=== PATIENT | male | born 1965 | race Caucasian/White ===

== ENCOUNTER 2016-10-17 11:40 | Emergency (ER) | payer BC ==
--- NOTE | 2016-10-17 14:05 | RAD ---
Indication: Shortness of breath, fall. 2 views of the chest including dual energy PA views demonstrate no mediastinal shift. Heart is of normal size and configuration. Lung appiah demonstrate no pleural fluid, pneumonia or pneumothorax. No alveolar consolidation is noted. IMPRESSION: No active cardiopulmonary disease is noted.
--- NOTE | 2016-10-27 12:24 | ED ---
Complex/Multi-Sys Presentation - HPI Summary HPI Summary: Patient suffered a fall 10 days ago and injured his left ribs. [facility] fractures and dx with early pneumonia, and started on ABX. Yesterday morning he felt a pop in his rib when he rolled over in bed and since then has had increased pain and a feeling of SOB. He denies any new trauma. No CP, abdominal pain or fevers. His pain increases with deep breaths, coughing and sneezing. He is using the ABX and pain medication with minimal relief. - History Of Current Complaint Chief Complaint: EDChestWallPain Time Seen by Provider: 10/17/16 13:25 Hx Obtained From: Patient, Family/Histopathology Technician Onset/Duration: Gradual Onset - yesterday Timing: Constant Severity Currently: Severe Severity Initially: Severe Location: Pain At: - left posterior mid ribs Character: Sharp - Allergies/Home Medications Allergies/Adverse Reactions: Allergies Allergy/AdvReac Type Severity Reaction Status Date / Time No Known Allergies Allergy Verified 10/17/16 12:38 PMH/Surg Hx/FS Hx/Imm Hx Previously Healthy: Yes Infectious Disease History: No Infectious Disease History: Denies: Traveled Outside the [place] in Last 30 Days - Family History Known Family History: Positive: Hypertension - Social History Occupation: Employed Full-time Lives: With Family Alcohol Use: None Substance Use Type: Reports: None Smoking Status (MU): Never Smoked Tobacco Review of Systems Negative: Fever, Chills Negative: Sore Throat, Ear Ache Negative: Chest Pain Negative: Shortness Of Breath - pain with deep breaths Negative: Abdominal Pain Positive: Myalgia Negative: Weakness, Paresthesia, Numbness All Other Systems Reviewed And Are Negative: Yes Physical Exam Triage Information Reviewed: Yes Vital Signs On Initial Exam: Initial Vitals Temp Pulse Resp BP Pulse Ox 98.4 F 77 16 135/91 100 10/17/16 12:31 10/17/16 12:31 10/17/16 12:31 10/17/16 12:31 10/17/16 12:31 Vital Signs Reviewed: Yes Appearance: Positive: Well-Appearing, Well-Nourished, Pain Distress Skin: Positive: Warm, Skin Color Reflects Adequate Perfusion, Dry, Soft Head/Face: Positive: Normal Head/Face Inspection Eyes: Positive: EOMI, BRAD ENT: Positive: Hearing grossly normal Respiratory/Lung Sounds: Positive: Clear to Auscultation, Breath Sounds Present. Negative: Rales, Rhonchi, Subcutaneous Emphysema, Stridor, Wheezes Cardiovascular: Positive: RRR Abdomen Description: Positive: Nontender, Soft Bowel Sounds: Positive: Present Musculoskeletal: Positive: Strength/ROM Intact, Pain @ - left posterior mid ribs. Negative: Edema Left Neurological: Positive: Sensory/Motor Intact, Alert, Oriented to Person Place, Time, NV Bundle Intact Distally, Normal Gait Psychiatric: Positive: Affect/Mood Appropriate AVPU Assessment: Alert Diagnostics - Vital Signs Vital Signs Temp Pulse Resp BP Pulse Ox 10/17/16 14:56 85 16 129/87 10/17/16 12:31 98.4 F 77 16 135/91 100 - Laboratory Lab Statement: Any lab studies that have been ordered have been reviewed, and results considered in the medical decision making process. - Radiology No standard instances Xray Interpretation: No Acute Changes Radiology Interpretation Completed By: Radiologist Complex Multi-Symp Course/Dx - Diagnoses Differential Diagnoses/HQI/PQRI: Aspiration, CVA, Sepsis Provider Diagnoses: Contusion of rib on left side Discharge - Discharge Plan Condition: Stable Disposition: HOME Patient Education Materials: Rib Contusion (ED) Forms: *Work Release Referrals: No Primary Care Phys,NOPCP [Primary Care Provider] - Additional Instructions: Please use ibuprofen 600mg three times daily with meals for the next 7-10 days. Make sure you take deep breaths several times daily to decrease your risk of pneumonia. Follow-up with your primary care provider if your symptom do not begin to improve in the next 10-14 days. Return to the emergency department if your symptoms worsen.
== END 2016-10-17 14:56 | disposition home or self-care (01) ==
LOC: ED 11:40
DX: S20.212A Contusion of left front wall of thorax, initial encounter (principal); X58.XXXA Exposure to other specified factors, initial encounter; Y93.9 Activity, unspecified; Y92.9 Unspecified place or not applicable
CPT/HCPCS: 71020; 99281

== ENCOUNTER 2019-06-16 13:52 | Inpatient (IN) | payer OTHER ==
[2019-06-16] MEDS ORDERED: NS 0.9% 1000 ML** 1,000 ML IV ONE (14:03)
--- OUTSIDE RECORDS SUMMARY | 2019-06-16 14:06 | XMS REPORT | Summary of Care ---
:1965 Author Organization [facility] Address [address] [place] [address] Care Team Providers Name Role Phone Etienne Alvaradoed Gisella DO Primary Care Provider Reason for Visit Reason Comments Check Up tick bite Encounter Details Date Type Department Care Team Description 05/12/2019 Office Visit Beth Ferrari Rash (Primary Dx); Practice [employer] Insect bite of back, unspecified laterality, initial encounter [address] [place] [address] [place] [address] [phone] Allergies No Known Allergiesdocumented as of this encounter (statuses as of 05/12/2019) Medications Medication Sig Dispensed Refills Start Date End Date Status Multiple Take 1 Tab by 60 Tab 3 02/17/2018 Active Vitamins-Minerals mouth DAILY. (MULTIVITAMIN ADULTS 50+) Oral Tab foliC acid 1 MG Oral Tab Take 1 Tab by 30 Tab 3 02/18/2018 Active mouth DAILY. Omeprazole delayed rel Take 20 mg by 90 Cap 1 05/06/2018 Active cap 20 MG Oral CAPSULE mouth DAILY. DELAYED RELEASE Spironolactone 100 MG Take 1 Tab by 90 Tab 3 09/08/2018 Active Oral Tab mouth DAILY. rifaximin (XIFAXAN) 550 Take 1 Tab by 180 Tab 1 03/18/2019 Active MG Oral TabIndications: mouth TWICE Alcoholic cirrhosis of DAILY. liver with ascites (HCC) furosemide (LASIX) 40 MG Take 1 Tab by 90 Tab 1 03/18/2019 Active Oral TabIndications: mouth DAILY. Alcoholic cirrhosis of liver with ascites (HCC) doxycycline (VIBRAMYCIN) Take 200 mg by 2 Tab 0 05/12/2019 05/13/2019 Active 100 MG Oral mouth ONE TIME TabIndications: Insect for 1 day. bite of back, unspecified laterality, initial encounter documented as of this encounter (statuses as of 05/12/2019) Active Problems Problem Noted Date Alcoholic cirrhosis of liver with ascites 03/24/2018 Cirrhosis documented as of this encounter (statuses as of 05/12/2019) Immunizations Name Administration Dates Next Due PNEUMOCOCCAL POLYSACCHARIDE VACCINE 02/26/2018 TDAP Vaccine 02/26/2018 documented as of this encounter Social History Tobacco Use Types Packs/Day Years Used Date Current Every Day Smoker Cigarettes 0.25 Smokeless Tobacco: Never Used Alcohol Use Drinks/Week oz/Week Comments No sober since 2.5 months Sex Assigned at Date Recorded Not on file Job Start Date Occupation Industry Not on file Not on file Not on file Travel History Travel Start Travel End No recent travel history available. documented as of this encounter Last Filed Vital Signs Vital Sign Reading Time Taken Comments Blood Pressure 120/70 05/12/2019 1:07 PM EDT Pulse 61 05/12/2019 1:07 PM EDT Temperature - - Respiratory Rate - - Oxygen Saturation 98% 05/12/2019 1:07 PM EDT Inhaled Oxygen Concentration - - Weight 78.2 kg (172 lb 6.4 oz) 05/12/2019 1:07 PM EDT Height 177.8 cm (5' 10") 05/12/2019 1:07 PM EDT Body Mass Index 24.74 05/12/2019 1:07 PM EDT documented in this encounter Patient Instructions Patient InstructionsBeth Anthony FNP - 05/12/2019 1:00 PM EDTMedication as directed - eat first Call if any fever, rash or body aches documented in this encounter Progress Notes Beth Anthony FNP - 05/12/2019 1:00 PM EDT PATIENT: Amari Magaña : 1965 DATE OF SERVICE: 05/12/2019 CHIEF COMPLAINT: Chief Complaint Patient presents with Check Up tick bite Subjective HISTORY OF PRESENT ILLNESS: Amari Magaña is a 54-y.o. male. HPI found red area on pt upper back yesterday. Had been doing yard work prior. No tick seen. Past Medical History: Diagnosis Date Cirrhosis (HCC) Family History Problem Relation Age of Onset Heart Father 50 [place] Heart Paternal Grandmother 74 [place] Current Outpatient Medications Medication Sig doxycycline (VIBRAMYCIN) 100 MG Oral Tab Take 200 mg by mouth ONE TIME for 1 day. foliC acid 1 MG Oral Tab Take 1 Tab by mouth DAILY. furosemide (LASIX) 40 MG Oral Tab Take 1 Tab by mouth DAILY. Multiple Vitamins-Minerals (MULTIVITAMIN ADULTS 50+) Oral Tab Take 1 Tab by mouth DAILY. Omeprazole delayed rel cap 20 MG Oral CAPSULE DELAYED RELEASE Take 20 mg by mouth DAILY. rifaximin (XIFAXAN) 550 MG Oral Tab Take 1 Tab by mouth TWICE DAILY. Spironolactone 100 MG Oral Tab Take 1 Tab by mouth DAILY. No current facility-administered medications for this visit. No Known Allergies Social History Socioeconomic History Marital status: Spouse name: Not on file Number of children: Not on file Years of education: Not on file Highest education level: Not on file Occupational History Not on file Social Needs Financial resource strain: Not on file Food insecurity: Worry: Not on file Inability: Not on file Transportation needs: Medical: Not on file Non-medical: Not on file Tobacco Use Smoking status: Current Every Day Smoker Packs/day: 0.25 Types: Cigarettes Smokeless tobacco: Never Used Substance and Sexual Activity Alcohol use: No Comment: sober since 2.5 months Drug use: Yes Types: Marijuana Sexual activity: Yes Partners: Female Lifestyle Physical activity: Days per week: Not on file Minutes per session: Not on file Stress: Not on file Relationships Social connections: Talks on phone: Not on file Gets together: Not on file Attends taoism service: Not on file Active member of club or organization: Not on file Attends meetings of clubs or organizations: Not on file Relationship status: Not on file Intimate partner violence: Fear of current or ex partner: Not on file Emotionally abused: Not on file Physically abused: Not on file Forced sexual activity: Not on file Other Topics Concern Back Care Not Asked Bike Helmet Not Asked Blood Transfusions Not Asked Caffeine Concern Not Asked Exercise Not Asked Hobby Hazards Not Asked International Travel Not Asked Service Not Asked Occupational Exposure Not Asked Seat Belt Not Asked Self-Exams Not Asked Sleep Concern Not Asked Special Diet Not Asked Stress Concern Not Asked Weight Concern Not Asked Social History Narrative 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 Musculoskeletal: Negative for joint pain and myalgias. Skin: Positive for rash. Negative for itching. Neurological: Negative for tingling. Objective PHYSICAL EXAM: VITALS: BP 120/70 (BP Location: Left arm, Patient Position: Sitting) | Pulse 61 | Ht 5' 10" (1.778 m) | Wt 172 lb 6.4 oz (78.2 kg) | SpO2 98% | BMI 24.74 kg/m Body mass index is 24.74 kg/m. Physical Exam Constitutional: He is oriented to person, place, and time. Vital signs are normal. He appears well-developed and well-nourished. HENT: Head: Normocephalic and atraumatic. Eyes: Pupils are equal, round, and reactive to light. Neck: Normal range of motion. No JVD present. Musculoskeletal: Normal range of motion. He exhibits no tenderness. Lymphadenopathy: He has no cervical adenopathy. Neurological: He is alert and oriented to person, place, and time. No cranial nerve deficit or sensory deficit. Gait normal. Skin: Skin is warm and dry. Rash noted. Rash is not pustular and not vesicular. There is erythema. Vitals reviewed. ASSESSMENT / IMPRESSION: ICD-9-CM ICD-10-CM 1. Rash 782.1 R21 2. Insect bite of back, unspecified laterality, initial encounter 911.4 S20.469A doxycycline (VIBRAMYCIN) 100 MG Oral Tab E906.4 right side Plan Will treat with tick prophylaxis Medication as directed - eat first Call if any fever, rash or body aches Author: PHILIP Pederson 05/12/2019 13:31 documented in this encounter Plan of Treatment Health Maintenance Due Date Last Done Comments HIV SCREENING 1981 COLONOSCOPY SCREENING 2016 ZOSTER IMMUNIZATION SERIES (1 2016 of 2) INFLUENZA VACCINE (#1) 2019 EGD (ESOPHAGODUODENOSCOPY) 05/06/2020 05/06/2018, 05/06/2018 DEPRESSION SCREENING 05/12/2020 05/12/2019 LIPID DISORDER SCREENING 03/02/2024 03/02/2019 PNEUMOCOCCAL 0-64 YRS Completed 02/26/2018 HPV IMMUNIZATION SERIES Aged Out No longer eligible based on patient's age to complete this topic MENINGOCOCCAL VACCINE IMM Aged Out No longer eligible based on patient's age to complete this topic documented as of this encounter Results Not on filedocumented in this encounter Visit Diagnoses Diagnosis Rash - Primary Rash and other nonspecific skin eruption Insect bite of back, unspecified laterality, initial encounter documented in this encounter documented as of this encounter
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
[2019-06-16 14:28] LABS: ABS Basophils 0.1 10^3/ul (0-0.2); ABS Lymphocytes 0.9 10^3/ul (1.0-4.8); ABS Monocytes 0.4 10^3/ul (0-0.8); ABS Neutrophils 4.2 10^3/ul (1.5-7.7); Eosinophil % 0.1 %; Hematocrit 43 % (42-52); Hemoglobin 14.5 g/dL (14.0-18.0); Lymphocyte % 16.9 %; Mean Corpuscular HGB Conc 33 g/dL (31-36); Mean Corpuscular Hemoglobin 30 pg (27-31); Mean Corpuscular Volume 89 fL (80-94); Mean Platelet Volume 8.1 fL (7.4-10.4); Nucleated Red Blood Cells % 0.1; Platelet Count 190 10^3/uL (150-450); Red Blood Count 4.87 10^6 /uL (4.18-5.48); Red Cell Distribution Width 14 % (10-15); White Blood Count 5.5 10^3/uL (3.5-10.8)
[2019-06-16 14:34] LABS: INR 1.29 (0.82-1.09)
[2019-06-16 14:53] LABS: Alcohol < 10 mg/dL (<10)
[2019-06-16 14:54] LABS: ALT 9 U/L (7-52); AST 19 U/L (13-39); Albumin 3.8 g/dL (3.2-5.2); Alkaline Phosphatase 57 U/L (34-104); Anion Gap 9 mmol/L (2-11); BUN/Creatinine Ratio 12.7 (8-20); Blood Urea Nitrogen 10 mg/dL (6-24); CO2 Carbon Dioxide 25 mmol/L (22-32); Calcium 9.3 mg/dL (8.6-10.3); Chloride 102 mmol/L (101-111); EGFR African American 124.1 (>60); EGFR Non-African American 102.6 (>60); Globulin 3.8 g/dL (2-4); Glucose 116 mg/dL (70-100); Magnesium 1.9 mg/dL (1.9-2.7); Potassium 3.7 mmol/L (3.5-5.0); Sodium 136 mmol/L (135-145); Total Protein 7.6 g/dL (6.4-8.9)
[2019-06-16 15:24] LABS: Troponin I 0.04 ng/mL (<0.04)
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
[2019-06-16] MEDS ORDERED: Lidocaine 1% INJ* 10 MG/ML 30 ML SDV ONE (16:34)
[2019-06-16] MEDS ORDERED: Heparin 2 UNITS/ML IVPREMIX* 1,000 ML IV ONE (16:34)
[2019-06-16] MEDS ORDERED: fentaNYL* 50 MCG/ML 2 ML VIAL (100 MCG VIAL) ONE (16:39)
[2019-06-16] MEDS ORDERED: Midazolam* 1 MG/ML 5 ML VIAL (5 MG) ONE (16:39)
--- NOTE | 2019-06-16 17:58 | OP ---
Operative Report - Detailed - Operation Details Date of Operation: 06/16/19 Surgeon(s): Mercedes Pre-Op Diagnosis: 3rd degree heart block. Post-Op Diagnosis: 3rd degree heart block Planned Operative Procedure(s): temporary pacer implant Estimated Blood Loss: <1CC IV Fluids: NS 50 cc Specimen(s)/Culture(s) Description: none Description of Procedure: Temporary pacer implant RIGHT subclavina vein. Lower rate 70 bpm. MA 5, pacing threshold 0.5. Async sensing.
--- NOTE | 2019-06-16 18:10 | ECHO ---
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 Syncope. History: Previously healthy. Conclusions Summary: - Left ventricle: Systolic function is vigorous. The estimated ejection fraction is 60-65%. - Right ventricle: Systolic function is normal. - All valves appear structurally normal with normal function. Trace mitral regurgitation. - No prior echocardiogram to compare. Study data: Transthoracic echocardiogram. Procedure: Transthoracic echocardiography was performed. Image quality was suboptimal. Intravenous Definity , 2 mlswas administered. Complete 2D, spectral Doppler, and color flow Doppler. Location: Emergency department. Patient status: Inpatient. Patient room number: 15. Rhythm: Heart block (? 3rd degree). Findings Left ventricle: The cavity size is normal. Wall thickness is normal. Systolic function is vigorous. The estimated ejection fraction is 60-65%. Wall motion is normal; there are no regional wall motion abnormalities. Left ventricular diastolic function parameters are normal. Right ventricle: The cavity size is normal. Systolic function is normal. Left atrium: The atrium is normal in size. Right atrium: The atrium is normal in size. Mitral valve: The leaflets are mildly thickened. There is no evidence of stenosis. There is trace regurgitation. Aortic valve: The valve is probably trileaflet. The leaflets are normal thickness. There is no evidence of stenosis. There is no significant regurgitation. Tricuspid valve: The leaflets are normal thickness. There is no evidence of stenosis. There is no significant regurgitation. Pulmonic valve: Not well visualized. There is no significant regurgitation. Aorta: The aortic root appears normal. The aortic arch appears normal. Pericardium: There is no significant pericardial effusion. Pulmonary arteries: Not well visualized. Systolic pressure can not be accurately estimated. Systemic veins: Inferior vena cava: The vessel is dilated. There is (>= 50%) respiratory change in the IVC dimension. Measurements Left ventricle Value Ref Right atrium continued Value Ref GERMAINE, LAX 5.4 cm 4.2 - 5.8 ML dim, ES, A4C 3.9 cm 2.6 - 4.4 ESD, LAX 2.8 cm 2.5 - 4.0 Estimated RAP 8 mm Hg --------- FS, LAX (H) 49 % 25 - 43 PW, ED, LAX 0.9 cm 0.6 - 1.0 Aortic valve Value Ref ESD/bsa 1.4 cm/m^2 1.3 - 2.1 Ronen diam, ED 2.1 cm --------- EF (H) 80 % 52 - 72 Peak v, S 1.6 m/sec --------- E', lat ronen, TDI 23.6 cm/sec >=10.0 VTI, S 31.9 cm ----- ---- E/e', lat ronen, 3 Mean grad, S 5.0 mm Hg -------- - TDI Peak grad, S 10.0 mm Hg --------- E', med ronen, TDI 20.7 cm/sec >=7.0 E/e', med ronen, 4 Mitral valve Value Ref TDI Peak E 0.8 m/sec --------- E', avg, TDI 22.2 cm/sec Peak A 0.4 m/sec -------- - E/e', avg, TDI 4 <=14 Decel time 119 ms ----- ---- Peak grad, D 2.5 mm Hg --------- LVOT Value Ref Peak E/A ratio 2 --------- Peak won, S 1.22 m/sec Peak grad, S 6 mm Hg Pulmonic valve Value Ref Mean grad, S 3 mm Hg Peak v, S 0.95 m/sec --------- Peak grad, S 4.0 mm Hg --------- Ventricular septum Value Ref IVS, ED 0.8 cm 0.6 - 1.0 Aortic root Value Ref Root diam 3.7 cm <4.1 Right ventricle Value Ref GERMAINE, LAX 2.6 cm Aortic arch Value Ref GERMAINE minor ax, 2.5 cm 1.9 - 3.5 Arch diam 2.2 cm --------- A4C mid Decending aorta Value Ref Left atrium Value Ref Crissy peak won 0.99 m/sec --------- AP dim, ES 3.60 cm 3.00 - 4.00 Inferior vena cava Value Ref ML dim, A4C 4.4 cm Diam 2.7 cm --------- SI dim, A4C 5.4 cm Vol/bsa, ES, A/L 30 ml/m^2 16 - 34 Right atrium Value Ref SI dim, ES 5.3 cm 3.4 - 5.3 Legend: (L) and (H) cass values outside specified reference range. Prepared and electronically signed by Kayli Long MD 06/16/2019 18:09
[2019-06-16] MEDS ORDERED: Potassium Chlor TAB* 20 MEQ TAB.ER PO ONE (20:01)
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
--- NOTE | 2019-06-16 21:12 | CARD ---
CC: Dr. Alvarado at the [facility] TEMPORARY PACEMAKER IMPLANTATION: DATE OF PROCEDURE: 06/16/19 PROCEDURE: Temporary pacemaker implantation. PRE-PROCEDURE DIAGNOSIS: Third-degree heart block with symptomatic bradycardia. POST-PROCEDURE DIAGNOSIS: Third-degree heart block with symptomatic bradycardia. PERFORMING PROVIDER: Dr. Kayli Long. ESTIMATED BLOOD LOSS: Less than 1 cc. COMPLICATIONS: None. DESCRIPTION OF PROCEDURE: The indications, risks, and benefits of the procedure were discussed with the patient in the presence of his family and details of the procedure were discussed. The patient is right-handed and the right subclavian fossa was prepped and draped in the usual steril e fashion. A time-out was called. Following this, the patient received 3 cc of 1% lidocaine for loc al anesthesia in the right subclavian fossa. Following this using a modified Seldinger technique, the right subclavian vein was cannulated. The guidewire was inserted using the fluoroscopic guidance. Following this, an introducer was inserted. The temporary pacer was then placed through the introduc er using fluoroscopic guidance. Once the temporary pacer was in the right atrium, the balloon was bl own up, was floated in the right ventricular apex. The balloon was brought down. The device gently advanced and thresholds checked. The pacing threshold was 0.5. The sensing was difficult to accurat sung assess, but it was asynchronous pacing at 70 beats per minute. He had no underlying intrinsic ra te. The introducer sheath was sutured to the chest wall in 2 places. The protective sheath over the device was carefully closed to prevent inadvertent dislodgement or repositioning. Dressing was appl ied. CONCLUSION: Successful temporary pacer wire implanted in the right subclavian fossa with no com plications. The patient was hemodynamically stable throughout the procedure and on transfer and arri jean claude to the ICU. [id number]/[facility] #: [id number]
[2019-06-16] MEDS: cefTRIAXone(*) 2 GM in NS 0.9% 100 ML* 100 ML IVPB SCH (21:40)
[2019-06-16 22:28] LABS: ABS Lymphocytes 1.8 10^3/ul (1.0-4.8); ABS Monocytes 0.4 10^3/ul (0-0.8); ABS Neutrophils 1.9 10^3/ul (1.5-7.7); Eosinophil % 0.5 %; Hematocrit 41 % (42-52); Hemoglobin 13.7 g/dL (14.0-18.0); Lymphocyte % 44.2 %; Mean Corpuscular HGB Conc 34 g/dL (31-36); Mean Corpuscular Hemoglobin 30 pg (27-31); Mean Corpuscular Volume 89 fL (80-94); Mean Platelet Volume 7.9 fL (7.4-10.4); Nucleated Red Blood Cells % 0.3; Platelet Count 192 10^3/uL (150-450); Red Blood Count 4.57 10^6 /uL (4.18-5.48); Red Cell Distribution Width 14 % (10-15); White Blood Count 4.1 10^3/uL (3.5-10.8)
[2019-06-16 22:30] LABS: ALT 8 U/L (7-52); AST 17 U/L (13-39); Albumin 3.4 g/dL (3.2-5.2); Alkaline Phosphatase 49 U/L (34-104); Anion Gap 5 mmol/L (2-11); BUN/Creatinine Ratio 12.9 (8-20); Blood Urea Nitrogen 8 mg/dL (6-24); CO2 Carbon Dioxide 27 mmol/L (22-32); Calcium 8.7 mg/dL (8.6-10.3); Chloride 106 mmol/L (101-111); EGFR African American 164.2 (>60); EGFR Non-African American 135.7 (>60); Globulin 3.4 g/dL (2-4); Glucose 126 mg/dL (70-100); Potassium 3.8 mmol/L (3.5-5.0); Sodium 138 mmol/L (135-145); Total Protein 6.8 g/dL (6.4-8.9)
[2019-06-16] MEDS: Ibuprofen TAB* 400 MG PO PRN (22:44)
[2019-06-16 23:15] LABS: Troponin I 0.05 ng/mL (<0.04)
[2019-06-17 05:59] LABS: ABS Eosinophils 0.1 10^3/ul (0-0.6); ABS Lymphocytes 1.5 10^3/ul (1.0-4.8); ABS Monocytes 0.3 10^3/ul (0-0.8); ABS Neutrophils 2.1 10^3/ul (1.5-7.7); Eosinophil % 1.4 %; Hematocrit 41 % (42-52); Hemoglobin 13.8 g/dL (14.0-18.0); Mean Corpuscular HGB Conc 34 g/dL (31-36); Mean Corpuscular Hemoglobin 30 pg (27-31); Mean Corpuscular Volume 89 fL (80-94); Mean Platelet Volume 7.7 fL (7.4-10.4); Nucleated Red Blood Cells % 0.1; Platelet Count 191 10^3/uL (150-450); Red Blood Count 4.61 10^6 /uL (4.18-5.48); Red Cell Distribution Width 15 % (10-15)
[2019-06-17 06:21] LABS: ALT 8 U/L (7-52); AST 16 U/L (13-39); Albumin 3.3 g/dL (3.2-5.2); Alkaline Phosphatase 52 U/L (34-104); Anion Gap 6 mmol/L (2-11); BUN/Creatinine Ratio 13.3 (8-20); Blood Urea Nitrogen 8 mg/dL (6-24); CO2 Carbon Dioxide 24 mmol/L (22-32); Calcium 8.9 mg/dL (8.6-10.3); Chloride 106 mmol/L (101-111); EGFR African American 170.5 (>60); EGFR Non-African American 140.9 (>60); Globulin 3.4 g/dL (2-4); Glucose 96 mg/dL (70-100); Potassium 4.2 mmol/L (3.5-5.0); Sodium 136 mmol/L (135-145); Total Protein 6.7 g/dL (6.4-8.9)
--- NOTE | 2019-06-17 06:22 | PROCNOTE ---
Cardiology Procedure Note Temporary pacemaker interrogation - Patient remains pacemaker dependent with high grade AV block - Captures at < 0.5 mA. Set at 5. - Rate remains at 70 bpm, asynchronous - No changes
[2019-06-17 06:23] LABS: Troponin I 0.04 ng/mL (<0.04)
--- NOTE | 2019-06-17 06:28 | PN ---
Subjective Date of Service: 06/17/19 Interval History: f/u symptomatic high grade AV block s/p temporary PM, suspect lyme carditis - no chest pain, dyspnea, or lightheadedness - Temporary PM functionally normally (see separate note) - Remains dependent Medications Active Medications: Ceftriaxone Sodium 2 gm/ (Sodium Chloride) 100 mls @ 200 mls/hr IVPB Q24H ALISON Last Admin: 06/16/19 21:40 Dose: 200 mls/hr Ibuprofen (Motrin Tab*) 400 mg PO Q6H PRN PRN Reason: PAIN - MILD Last Admin: 06/16/19 22:44 Dose: 400 mg Objective Vital Signs: Temp Pulse Resp BP Pulse Ox 100.4 F 70 22 122/74 95 06/16/19 23:27 06/17/19 03:00 06/17/19 03:00 06/17/19 03:00 06/17/19 03:00 Oxygen Devices in Use Now: None Appearance: nad, pleasant Ears/Nose/Mouth/Throat: Clear Oropharnyx Neck: NL Appearance and Movements; NL JVP, Trachea Midline Respiratory: Symmetrical Chest Expansion and Respiratory Effort, - - diffuse coarse breath sounds Cardiovascular: RRR, No Edema, - - no significant murmur. Temporary PM intact, no swelling or ecchymosis at site Abdominal: NL Sounds; No Tenderness; No Distention Extremities: No Edema Skin: No Rash or Ulcers Neurological: Alert and Oriented x 3 Laboratory Results: 06/17/19 05:46 06/17/19 05:46 INR (Anticoag Therapy) 1.29 (0.82-1.09) H 06/16/19 14:09 Total Bilirubin 0.50 mg/dL (0.2-1.0) 06/17/19 05:46 AST 16 U/L (13-39) 06/17/19 05:46 ALT 8 U/L (7-52) 06/17/19 05:46 Alkaline Phosphatase 52 U/L (34-104) 06/17/19 05:46 Total Protein 6.7 g/dL (6.4-8.9) 06/17/19 05:46 Albumin 3.3 g/dL (3.2-5.2) 06/17/19 05:46 Globulin 3.4 g/dL (2-4) 06/17/19 05:46 Albumin/Globulin Ratio 1.0 (1-3) 06/17/19 05:46 06/16/19 06/16/19 06/17/19 14:08 21:56 05:46 Troponin I 0.04 H* 0.05 H* 0.04 H* Diagnostic Imaging: Transthoracic Echocardiogram Study Date: 06/16/2019- Conclusions Summary: - Left ventricle: Systolic function is vigorous. The estimated ejection fraction is 60-65%. - Right ventricle: Systolic function is normal. - All valves appear structurally normal with normal function. EKG Data: ekg admission: NSR ~ 100 bpm. High grade AV block with episodes of junctional escape rate < 40 bpm overall Assessment/Plan Symptomatic high grade AV block - Continue temporary PM - continue empiric antibiotics for suspected lyme's, await titer Would consider pharmacologic DVT prophylaxis while bedrest Patient counseled on smoking cessation, he declines nicotine replacement therapy for now
--- NOTE | 2019-06-17 13:53 | PN ---
Date of Service: 06/17/19 Critical Care Services: s/p pacemaker (temp) yesterday. underlying rhythm still 3rd degree heart block Lyme + Vital Signs: Temp Pulse Resp BP SpO2 FiO2 98.7 F 71 26 109/73 95 06/17/19 08:00 06/17/19 13:00 06/17/19 13:00 06/17/19 13:00 06/17/19 13:00 Physical Exam: Gen: NAD. AO times 3 HEENT: Lungs: CTA B/L Cardiac: RRR Abdomen: +BS''s, soft, NTP. No rebound or guarding Extremities:No DAJUAN Neuro: No focal deficits Fluid Balance (Past 24 Hours): I= O= Net Intake & Output 06/15/19 06/16/19 06/17/19 06/18/19 06:59 06:59 06:59 06:59 Intake Total 1800 360 Output Total 400 Balance 1800 -40 Weight 180 lb Intake: IV Fluids 1000 NS (0.9%) 0 Oral 800 360 Output: Urine 400 Other: Date of Last Bowel 0 Movement # Voids 2 Labs: Laboratory Results - last 24 hr 06/16/19 06/16/19 06/16/19 14:08 14:08 14:08 WBC 5.5 RBC 4.87 Hgb 14.5 Hct 43 MCV 89 MCH 30 MCHC 33 RDW 14 Plt Count 190 MPV 8.1 Neut % (Auto) 74.9 Lymph % (Auto) 16.9 Carson % (Auto) 7.2 Eos % (Auto) 0.1 Baso % (Auto) 0.9 Absolute Neuts (auto) 4.2 Absolute Lymphs (auto) 0.9 L Absolute Monos (auto) 0.4 Absolute Eos (auto) 0.0 Absolute Basos (auto) 0.1 Absolute Nucleated RBC 0.0 Nucleated RBC % 0.1 INR (Anticoag Therapy) Sodium 136 Potassium 3.7 Chloride 102 Carbon Dioxide 25 Anion Gap 9 BUN 10 Creatinine 0.79 Est GFR ( Amer) 124.1 Est GFR (Non-Af Amer) 102.6 BUN/Creatinine Ratio 12.7 Glucose 116 H Calcium 9.3 Magnesium 1.9 Total Bilirubin 0.60 AST 19 ALT 9 Alkaline Phosphatase 57 Troponin I 0.04 H* Total Protein 7.6 Albumin 3.8 Globulin 3.8 Albumin/Globulin Ratio 1.0 Serum Alcohol < 10 Lyme Total Antibody Positive A 06/16/19 06/16/19 06/16/19 14:09 21:56 21:56 WBC 4.1 RBC 4.57 Hgb 13.7 L Hct 41 L MCV 89 MCH 30 MCHC 34 RDW 14 Plt Count 192 MPV 7.9 Neut % (Auto) 45.8 Lymph % (Auto) 44.2 Carson % (Auto) 9.2 Eos % (Auto) 0.5 Baso % (Auto) 0.3 Absolute Neuts (auto) 1.9 Absolute Lymphs (auto) 1.8 Absolute Monos (auto) 0.4 Absolute Eos (auto) 0.0 Absolute Basos (auto) 0.0 Absolute Nucleated RBC 0.0 Nucleated RBC % 0.3 INR (Anticoag Therapy) 1.29 H Sodium 138 Potassium 3.8 Chloride 106 Carbon Dioxide 27 Anion Gap 5 BUN 8 Creatinine 0.62 L Est GFR ( Amer) 164.2 Est GFR (Non-Af Amer) 135.7 BUN/Creatinine Ratio 12.9 Glucose 126 H Calcium 8.7 Magnesium 2.0 Total Bilirubin 0.50 AST 17 ALT 8 Alkaline Phosphatase 49 Troponin I 0.05 H* Total Protein 6.8 Albumin 3.4 Globulin 3.4 Albumin/Globulin Ratio 1.0 Serum Alcohol Lyme Total Antibody 06/17/19 06/17/19 05:46 05:46 WBC 4.0 RBC 4.61 Hgb 13.8 L Hct 41 L MCV 89 MCH 30 MCHC 34 RDW 15 Plt Count 191 MPV 7.7 Neut % (Auto) 53.4 Lymph % (Auto) 37.0 Carson % (Auto) 7.5 Eos % (Auto) 1.4 Baso % (Auto) 0.7 Absolute Neuts (auto) 2.1 Absolute Lymphs (auto) 1.5 Absolute Monos (auto) 0.3 Absolute Eos (auto) 0.1 Absolute Basos (auto) 0.0 Absolute Nucleated RBC 0.0 Nucleated RBC % 0.1 INR (Anticoag Therapy) Sodium 136 Potassium 4.2 Chloride 106 Carbon Dioxide 24 Anion Gap 6 BUN 8 Creatinine 0.60 L Est GFR ( Amer) 170.5 Est GFR (Non-Af Amer) 140.9 BUN/Creatinine Ratio 13.3 Glucose 96 Calcium 8.9 Magnesium 2.0 Total Bilirubin 0.50 AST 16 ALT 8 Alkaline Phosphatase 52 Troponin I 0.04 H* Total Protein 6.7 Albumin 3.3 Globulin 3.4 Albumin/Globulin Ratio 1.0 Serum Alcohol Lyme Total Antibody Impression: 3rd degree heart block s/p pacemaker placement Lyme disease Plan: continue to monitor in the ICU to see if resolution 3rd degree heart block Ceftriaxone for Lyme disease Critical Care Time: 45
[2019-06-17 14:25] LABS: Urine Benzodiazepine Screen Presumptive Positive (None Detect); Urine Opiates Screen None Detected (None Detect)
[2019-06-17] MEDS: Enoxaparin(*) 40 MG/0.4 ML SYR SUBCUT SCH (14:44)
[2019-06-17] MEDS: cefTRIAXone(*) 2 GM in NS 0.9% 100 ML* 100 ML IVPB SCH (20:32)
[2019-06-17] MEDS: Ibuprofen TAB* 400 MG PO PRN (20:33)
[2019-06-18 03:40] LABS: Hematocrit 40 % (42-52); Hemoglobin 13.6 g/dL (14.0-18.0); Mean Corpuscular HGB Conc 34 g/dL (31-36); Mean Corpuscular Hemoglobin 30 pg (27-31); Mean Corpuscular Volume 89 fL (80-94); Mean Platelet Volume 7.7 fL (7.4-10.4); Platelet Count 199 10^3/uL (150-450); Red Blood Count 4.52 10^6 /uL (4.18-5.48); Red Cell Distribution Width 15 % (10-15); White Blood Count 3.4 10^3/uL (3.5-10.8)
[2019-06-18 03:45] LABS: ABS Eosinophils 0.1 10^3/ul (0-0.6); ABS Lymphocytes 2.3 10^3/ul (1.0-4.8); ABS Monocytes 0.4 10^3/ul (0-0.8); ABS Neutrophils 0.6 10^3/ul (1.5-7.7); Eosinophil % 2.9 %; Lymphocyte % 66.4 %; Nucleated Red Blood Cells % 0.1
[2019-06-18 03:55] LABS: Albumin 3.2 g/dL (3.2-5.2); Albumin/Globulin Ratio 0.9 (1-3); BUN/Creatinine Ratio 12.5 (8-20); Calcium 8.5 mg/dL (8.6-10.3); EGFR African American 158.3 (>60); EGFR Non-African American 130.8 (>60); Globulin 3.5 g/dL (2-4); Potassium 4.2 mmol/L (3.5-5.0); Total Bilirubin 0.4 mg/dL (0.2-1.0); Total Protein 6.7 g/dL (6.4-8.9)
[2019-06-18 04:34] LABS: Hematocrit 43 % (42-52); Hemoglobin 14.5 g/dL (14.0-18.0); Mean Corpuscular HGB Conc 34 g/dL (31-36); Mean Corpuscular Hemoglobin 30 pg (27-31); Mean Corpuscular Volume 89 fL (80-94); Mean Platelet Volume 7.8 fL (7.4-10.4); Platelet Count 194 10^3/uL (150-450); Red Blood Count 4.85 10^6 /uL (4.18-5.48); Red Cell Distribution Width 15 % (10-15); White Blood Count 3.4 10^3/uL (3.5-10.8)
[2019-06-18 05:30] LABS: ABS Eosinophils 0.1 10^3/ul (0-0.6); ABS Lymphocytes 2.2 10^3/ul (1.0-4.8); ABS Monocytes 0.4 10^3/ul (0-0.8); ABS Neutrophils 0.5 10^3/ul (1.5-7.7); Eosinophil % 3.1 %; Lymphocyte % 68.2 %; Nucleated Red Blood Cells % 0.1
--- NOTE | 2019-06-18 08:09 | PROCNOTE ---
Cardiology Procedure Note Temporary pacemaker interrogation and reprogramming - Patient remains pacemaker dependent with high grade AV block - Captures at < 0.5 mA. Set at 5. - Set asynchronous - Rate lowered from 70 bpm to 55 bpm. Several [place] QRS complexes occasionally noted
--- NOTE | 2019-06-18 08:11 | PN ---
Subjective Date of Service: 06/18/19 Interval History: f/u symptomatic high grade AV block s/p temporary PM, preliminary lyme + - no chest pain, dyspnea, or lightheadedness - Temporary PM functionally normally (see separate note), rate lowered to 55 bpm this AM - Remains dependent Medications Active Medications: Enoxaparin Sodium (Lovenox(*)) 40 mg SUBCUT Q24H [facility] Last Admin: 06/17/19 14:44 Dose: 40 mg Ceftriaxone Sodium 2 gm/ (Sodium Chloride) 100 mls @ 200 mls/hr IVPB Q24H [facility] Last Admin: 06/17/19 20:32 Dose: 200 mls/hr Ibuprofen (Motrin Tab*) 400 mg PO Q6H PRN PRN Reason: PAIN - MILD Last Admin: 06/17/19 20:33 Dose: 400 mg Influenza Virus Vaccine (Fluarix Quad 1194-6201 Syr) 0.5 ml IM .ONCE ONE Stop: 06/21/19 09:01 Objective Vital Signs: Temp Pulse Resp BP Pulse Ox 97.4 F 71 23 123/84 94 06/18/19 04:00 06/18/19 07:42 06/18/19 07:42 06/18/19 07:42 06/18/19 07:42 Oxygen Devices in Use Now: None Appearance: nad, pleasant Ears/Nose/Mouth/Throat: Clear Oropharnyx Neck: NL Appearance and Movements; NL JVP, Trachea Midline Respiratory: Symmetrical Chest Expansion and Respiratory Effort, - - diffuse coarse breath sounds Cardiovascular: RRR, No Edema, - - no significant murmur. Temporary PM intact, no swelling or ecchymosis at site Abdominal: NL Sounds; No Tenderness; No Distention Extremities: No Edema Skin: No Rash or Ulcers Neurological: Alert and Oriented x 3 Laboratory Results: 06/18/19 04:19 06/18/19 03:25 INR (Anticoag Therapy) 1.29 (0.82-1.09) H 06/16/19 14:09 Total Bilirubin 0.40 mg/dL (0.2-1.0) 06/18/19 03:25 AST 14 U/L (13-39) 06/18/19 03:25 ALT 7 U/L (7-52) 06/18/19 03:25 Alkaline Phosphatase 47 U/L (34-104) 06/18/19 03:25 Total Protein 6.7 g/dL (6.4-8.9) 06/18/19 03:25 Albumin 3.2 g/dL (3.2-5.2) 06/18/19 03:25 Globulin 3.5 g/dL (2-4) 06/18/19 03:25 Albumin/Globulin Ratio 0.9 (1-3) L 06/18/19 03:25 06/16/19 06/16/19 06/17/19 14:08 21:56 05:46 Troponin I 0.04 H* 0.05 H* 0.04 H* Diagnostic Imaging: Transthoracic Echocardiogram Study Date: 06/16/2019- Conclusions Summary: - Left ventricle: Systolic function is vigorous. The estimated ejection fraction is 60-65%. - Right ventricle: Systolic function is normal. - All valves appear structurally normal with normal function. EKG Data: ekg admission: NSR ~ 100 bpm. High grade AV block with episodes of junctional escape rate < 40 bpm overall Assessment/Plan Symptomatic high grade AV block - Continue temporary PM - continue antibiotics for suspected lyme's carditis, await confirmatory testing - Patient still thinks he's ok without nicotine replacement therapy
[2019-06-18] MEDS: Enoxaparin(*) 40 MG/0.4 ML SYR SUBCUT SCH (14:07)
--- NOTE | 2019-06-18 16:08 | PN ---
Date of Service: 06/18/19 - [facility] note Critical Care Services: Pt seen and examined at bedside. Pt reprots fatigue, denies any other issues. Active Medications Generic Name Dose Route Start Last Admin Trade Name Freq PRN Reason Stop Dose Admin Enoxaparin Sodium 40 mg 06/17/19 14:00 06/18/19 14:07 Lovenox(*) SUBCUT 40 mg Q24H [facility] Administration Ceftriaxone Sodium 2 gm/ 100 mls @ 200 mls/hr 06/16/19 21:00 06/17/19 20:32 Sodium Chloride IVPB 200 mls/hr Q24H ALISON Administration Ibuprofen 400 mg 06/16/19 22:15 06/17/19 20:33 Motrin Tab* PO 400 mg Q6H PRN Administration PAIN - MILD Influenza Virus Vaccine 0.5 ml 06/21/19 09:00 Fluarix Quad [id number] Syr IM 06/21/19 09:01 .ONCE ONE Vital Signs: Temp Pulse Resp BP SpO2 FiO2 99.3 F 55 26 113/65 94 06/18/19 12:00 06/18/19 15:00 06/18/19 15:00 06/18/19 15:00 06/18/19 15:00 Physical Exam: Gen: Pt in NAD HEENT: PERRLA, no JVD Lungs: Good a/e b/l, no wheeze Cardiac: S1, S2+, bradycardia+ Abdomen: Soft, BS+ Extremities: No edema Neuro: AAOX3, no focal deficits Fluid Balance (Past 24 Hours): I= 1364 O= 1150 Net 214 Intake & Output 06/16/19 06/17/19 06/18/19 06/19/19 06:59 06:59 06:59 06:59 Intake Total 1800 1281 1364 Output Total 1999 1150 Balance 1800 -719 214 Weight 180 lb Intake: IV Fluids 1000 181 44 NS (0.9%) 0 181 44 IVPB 140 ABX 55 NS (0.9%) 85 Oral 689 396 5750 Output: Urine 1999 1150 Other: Date of Last Bowel 0 Movement # Voids 2 0 Labs: Laboratory Results - last 24 hr 06/18/19 06/18/19 06/18/19 03:25 03:25 04:19 WBC 3.4 L 3.4 L RBC 4.52 4.85 Hgb 13.6 L 14.5 Hct 40 L 43 MCV 89 89 MCH 30 30 MCHC 34 34 RDW 15 15 Plt Count 199 194 MPV 7.7 7.8 Neut % (Auto) 17.6 14.5 Lymph % (Auto) 66.4 68.2 Swift % (Auto) 11.8 12.8 Eos % (Auto) 2.9 3.1 Baso % (Auto) 1.3 1.4 Absolute Neuts (auto) 0.6 L* 0.5 L* Absolute Lymphs (auto) 2.3 2.2 Absolute Monos (auto) 0.4 0.4 Absolute Eos (auto) 0.1 0.1 Absolute Basos (auto) 0.0 0.0 Absolute Nucleated RBC 0.0 0.0 Immature Gran % 1.0 Neutrophils % 17.0 Band Neutrophils % 1.0 Lymphocytes % 63.0 Reactive Lymphs % 6.0 Monocytes % 10.0 Eosinophils % 2.0 Basophils % 1.0 Nucleated RBC % 0.1 0.1 Normal RBC Morphology Normal Sodium 137 Potassium 4.2 Chloride 107 Carbon Dioxide 25 Anion Gap 5 BUN 8 Creatinine 0.64 L Est GFR ( Amer) 158.3 Est GFR (Non-Af Amer) 130.8 BUN/Creatinine Ratio 12.5 Glucose 102 H Calcium 8.5 L Magnesium 2.0 Total Bilirubin 0.40 AST 14 ALT 7 Alkaline Phosphatase 47 Total Protein 6.7 Albumin 3.2 Globulin 3.5 Albumin/Globulin Ratio 0.9 L Impression: 54 y o m with tick bite with complete heart block s/p pacemaker placement Bradycardia sec to complete heart block Lyme disease Plan: Lyme carditis: On ceftriaxone, will need 2 week course, s/p temporary pacemaker placement. No syncopal episodes. Cardiology f/u noted. Will continue to monitor in ICU. Might not need permanent pacemaker. Leucopenia: Secondary to early Borrelia infection. Neutropenic precautions ordered. Bl cx sent. DVT px: Heparin sq Critical Care Time: 25 min
--- NOTE | 2019-06-18 16:39 | PROCNOTE ---
Cardiology Procedure Note Temporary PM rate lowered to 45 BPM and set to demand mode Rhythm appears sinus bradycardia/sinus rhythm with 1 AVB Plan EKG in AM and pending this and any pacing needs possible removal tomorrow.
[2019-06-18] MEDS: cefTRIAXone(*) 2 GM in NS 0.9% 100 ML* 100 ML IVPB SCH (21:08)
[2019-06-19 04:59] LABS: Hematocrit 41 % (42-52); Hemoglobin 13.6 g/dL (14.0-18.0); Mean Corpuscular HGB Conc 34 g/dL (31-36); Mean Corpuscular Hemoglobin 30 pg (27-31); Mean Corpuscular Volume 89 fL (80-94); Mean Platelet Volume 7.7 fL (7.4-10.4); Platelet Count 196 10^3/uL (150-450); Red Blood Count 4.56 10^6 /uL (4.18-5.48); Red Cell Distribution Width 15 % (10-15)
[2019-06-19 05:01] LABS: Albumin 3.2 g/dL (3.2-5.2); Albumin/Globulin Ratio 0.9 (1-3); BUN/Creatinine Ratio 11.7 (8-20); Calcium 8.7 mg/dL (8.6-10.3); EGFR African American 170.5 (>60); EGFR Non-African American 140.9 (>60); Globulin 3.6 g/dL (2-4); Magnesium 2.2 mg/dL (1.9-2.7); Potassium 4.1 mmol/L (3.5-5.0); Total Bilirubin 0.3 mg/dL (0.2-1.0); Total Protein 6.8 g/dL (6.4-8.9)
[2019-06-19 05:09] LABS: ABS Eosinophils 0.1 10^3/ul (0-0.6); ABS Monocytes 0.5 10^3/ul (0-0.8); ABS Neutrophils 0.4 10^3/ul (1.5-7.7)
[2019-06-19 05:42] LABS: Eosinophil % 3.1 %; Lymphocyte % 65.7 %; Nucleated Red Blood Cells % 0.1
[2019-06-19] MEDS: Ibuprofen TAB* 400 MG PO PRN (07:02)
--- NOTE | 2019-06-19 08:35 | PROCNOTE ---
Cardiology Procedure Note Temporary pacemaker interrogation and reprogramming Patient had periods of sinus rhythm overnight Now demand paced 45 bpm. Patient dependent with prolonged symptomatic AV block when turned off. - Captures at < 0.5 mA. Set at 5. - Set demand - Rate lowered from 45 bpm to 40 bpm. Asymptomatic at this rate
--- NOTE | 2019-06-19 08:39 | PN ---
Subjective Date of Service: 06/19/19 Interval History: f/u symptomatic high grade AV block s/p temporary PM, preliminary lyme + - no chest pain, dyspnea, - Temporary PM functionally normally (see separate note), demand rate lowered to 40 bpm this AM - Remains intermittently dependent Medications Active Medications: Enoxaparin Sodium (Lovenox(*)) 40 mg SUBCUT Q24H [facility] Last Admin: 06/18/19 14:07 Dose: 40 mg Ceftriaxone Sodium 2 gm/ (Sodium Chloride) 100 mls @ 200 mls/hr IVPB Q24H [facility] Last Admin: 06/18/19 21:08 Dose: 200 mls/hr Ibuprofen (Motrin Tab*) 400 mg PO Q6H PRN PRN Reason: PAIN - MILD Last Admin: 06/19/19 07:02 Dose: 400 mg Influenza Virus Vaccine (Fluarix Quad [id number] Syr) 0.5 ml IM .ONCE ONE Stop: 06/21/19 09:01 Objective Vital Signs: Temp Pulse Resp BP Pulse Ox 99.5 F 71 24 140/94 91 06/19/19 03:46 06/19/19 07:00 06/19/19 07:00 06/19/19 07:00 06/19/19 07:00 Oxygen Devices in Use Now: None Appearance: nad, pleasant Ears/Nose/Mouth/Throat: Clear Oropharnyx Neck: NL Appearance and Movements; NL JVP, Trachea Midline Respiratory: Symmetrical Chest Expansion and Respiratory Effort, - Cardiovascular: RRR, No Edema, - - no significant murmur. Temporary PM intact, no swelling or ecchymosis at site Abdominal: NL Sounds; No Tenderness; No Distention Extremities: No Edema Skin: No Rash or Ulcers Neurological: Alert and Oriented x 3 Laboratory Results: 06/19/19 04:34 06/19/19 04:34 INR (Anticoag Therapy) 1.29 (0.82-1.09) H 06/16/19 14:09 Total Bilirubin 0.30 mg/dL (0.2-1.0) 06/19/19 04:34 AST 11 U/L (13-39) L 06/19/19 04:34 ALT 6 U/L (7-52) L 06/19/19 04:34 Alkaline Phosphatase 45 U/L (34-104) 06/19/19 04:34 Total Protein 6.8 g/dL (6.4-8.9) 06/19/19 04:34 Albumin 3.2 g/dL (3.2-5.2) 06/19/19 04:34 Globulin 3.6 g/dL (2-4) 06/19/19 04:34 Albumin/Globulin Ratio 0.9 (1-3) L 06/19/19 04:34 06/16/19 06/16/19 06/17/19 14:08 21:56 05:46 Troponin I 0.04 H* 0.05 H* 0.04 H* Diagnostic Imaging: Transthoracic Echocardiogram Study Date: 06/16/2019- Conclusions Summary: - Left ventricle: Systolic function is vigorous. The estimated ejection fraction is 60-65%. - Right ventricle: Systolic function is normal. - All valves appear structurally normal with normal function. EKG Data: ekg admission: NSR ~ 100 bpm. 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
--- NOTE | 2019-06-19 08:49 | PN ---
Cardiology Progress Note Date of Service: 06/19/19 patient developed lightheadedness with rate 40 bpm increased rate to 50 bpm and symptoms resolved
--- NOTE | 2019-06-19 12:18 | PN ---
Date of Service: 06/19/19 - [facility] note Critical Care Services: Pt seen and examined at bedside. Had dizziness when pacemaker rate was lowered to 40, feeling better after rate increased. Active Medications Generic Name Dose Route Start Last Admin Trade Name Frecolin PRN Reason Stop Dose Admin Enoxaparin Sodium 40 mg 06/17/19 14:00 06/18/19 14:07 Lovenox(*) SUBCUT 40 mg Q24H [facility] Administration Ceftriaxone Sodium 2 gm/ 100 mls @ 200 mls/hr 06/16/19 21:00 06/18/19 21:08 Sodium Chloride IVPB 200 mls/hr Q24H [facility] Administration Ibuprofen 400 mg 06/16/19 22:15 06/19/19 07:02 Motrin Tab* PO 400 mg Q6H PRN Administration PAIN - MILD Influenza Virus Vaccine 0.5 ml 06/21/19 09:00 Fluarix Quad [id number] Syr IM 06/21/19 09:01 .ONCE ONE Vital Signs: Temp Pulse Resp BP SpO2 FiO2 98.8 F 51 23 116/68 95 06/19/19 08:00 06/19/19 11:01 06/19/19 11:01 06/19/19 11:00 06/19/19 11:01 Physical Exam: Gen: Pt in NAD HEENT: PERRLA. no JVD Lungs: Good a/e b/l, scaterred wheeze+ Cardiac: S1, S2+ Abdomen: Soft, BS+ Extremities: No edema Neuro: Alert, awake, no focal deficits Skin: No rash Fluid Balance (Past 24 Hours): I= 560 O= 200 Net 360 Intake & Output 06/17/19 06/18/19 06/19/19 06/20/19 06:59 06:59 06:59 06:59 Intake Total 1800 1428 1390 560 Output Total 1999 1900 200 Balance 1800 -572 -510 360 Weight 180 lb Intake: IV Fluids 1000 228 70 NS (0.9%) 0 228 70 IVPB 240 ABX 155 NS (0.9%) 85 Oral 888 623 0119 560 Output: Urine 1999 1350 200 [place] 550 Other: Date of Last Bowel 0 Movement # Voids 2 0 Labs: Laboratory Results - last 24 hr 06/18/19 06/19/19 06/19/19 03:25 04:34 04:34 WBC 3.0 L RBC 4.56 Hgb 13.6 L Hct 41 L MCV 89 MCH 30 MCHC 34 RDW 15 Plt Count 196 MPV 7.7 Neut % (Auto) 14.0 Lymph % (Auto) 65.7 [place] % (Auto) 15.7 Eos % (Auto) 3.1 Baso % (Auto) 1.5 Absolute Neuts (auto) 0.4 L* Absolute Lymphs (auto) 2.0 Absolute Monos (auto) 0.5 Absolute Eos (auto) 0.1 Absolute Basos (auto) 0.0 Absolute Nucleated RBC 0.0 Nucleated RBC % 0.1 Hem Pathologist Commnt Sodium 136 Potassium 4.1 Chloride 106 Carbon Dioxide 25 Anion Gap 5 BUN 7 Creatinine 0.60 L Est GFR ( Amer) 170.5 Est GFR (Non-Af Amer) 140.9 BUN/Creatinine Ratio 11.7 Glucose 104 H Calcium 8.7 Magnesium 2.2 Total Bilirubin 0.30 AST 11 L ALT 6 L Alkaline Phosphatase 45 Total Protein 6.8 Albumin 3.2 Globulin 3.6 Albumin/Globulin Ratio 0.9 L Nutrition: Regular diet Impression: 54 y o m with tick bite with complete heart block s/p pacemaker placement Bradycardia sec to complete heart block ? 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 Still dependant on pacemaker, AV dissociation noted on EKG. Cardiology f/u noted. Will continue to monitor in ICU with transvenous pacemaker. Might not need permanent pacemaker if recovers over next couple of days. Leucopenia: Secondary to early Borrelia infection. Neutropenic precautions ordered. Bl cx sent. c/w ceftriaxone, confirmatory test is pending. DVT px: Heparin sq Critical Care Time: 20 min
[2019-06-19] MEDS: Enoxaparin(*) 40 MG/0.4 ML SYR SUBCUT SCH (15:08)
[2019-06-19] MEDS: cefTRIAXone(*) 2 GM in NS 0.9% 100 ML* 100 ML IVPB SCH (20:38)
[2019-06-20 04:53] LABS: Hematocrit 41 % (42-52); Hemoglobin 13.6 g/dL (14.0-18.0); Mean Corpuscular HGB Conc 33 g/dL (31-36); Mean Corpuscular Hemoglobin 30 pg (27-31); Mean Corpuscular Volume 89 fL (80-94); Mean Platelet Volume 7.6 fL (7.4-10.4); Platelet Count 201 10^3/uL (150-450); Red Blood Count 4.63 10^6 /uL (4.18-5.48); Red Cell Distribution Width 15 % (10-15); White Blood Count 3.3 10^3/uL (3.5-10.8)
[2019-06-20 04:59] LABS: ABS Eosinophils 0.2 10^3/ul (0-0.6); ABS Lymphocytes 2.2 10^3/ul (1.0-4.8); ABS Monocytes 0.5 10^3/ul (0-0.8); ABS Neutrophils 0.3 10^3/ul (1.5-7.7)
[2019-06-20 05:03] LABS: Albumin 3.3 g/dL (3.2-5.2); BUN/Creatinine Ratio 12.7 (8-20); Calcium 8.9 mg/dL (8.6-10.3); EGFR African American 161.2 (>60); EGFR Non-African American 133.2 (>60); Globulin 3.2 g/dL (2-4); Magnesium 2.3 mg/dL (1.9-2.7); Potassium 4.3 mmol/L (3.5-5.0); Total Bilirubin 0.3 mg/dL (0.2-1.0); Total Protein 6.5 g/dL (6.4-8.9)
[2019-06-20 05:56] LABS: Lymphocyte % 69.6 %; Nucleated Red Blood Cells % 0.3
--- NOTE | 2019-06-20 13:39 | PN ---
Subjective Date of Service: 06/20/19 Interval History: f/u symptomatic lyme carditis high grade AV block s/p temporary PM, - no chest pain, dyspnea, or lightheadedness - A few demand paced spikes at 45 bpm this AM but mostly gambell sinus rhythm - ekg this am nsr, long 1 avb, twi suspect memory related Medications Active Medications: Enoxaparin Sodium (Lovenox(*)) 40 mg SUBCUT Q24H [facility] Last Admin: 06/19/19 15:08 Dose: 40 mg Ceftriaxone Sodium 2 gm/ (Sodium Chloride) 100 mls @ 200 mls/hr IVPB Q24H [facility] Last Admin: 06/19/19 20:38 Dose: 200 mls/hr Ibuprofen (Motrin Tab*) 400 mg PO Q6H PRN PRN Reason: PAIN - MILD Last Admin: 06/19/19 07:02 Dose: 400 mg Influenza Virus Vaccine (Fluarix Quad [id number] Syr) 0.5 ml IM .ONCE ONE Stop: 06/21/19 09:01 Objective Vital Signs: Temp Pulse Resp BP Pulse Ox 99 F 68 19 122/78 92 06/20/19 11:25 06/20/19 12:00 06/20/19 12:00 06/20/19 12:00 06/20/19 12:00 Oxygen Devices in Use Now: None Appearance: nad, pleasant Ears/Nose/Mouth/Throat: Clear Oropharnyx Neck: NL Appearance and Movements; NL JVP, Trachea Midline Respiratory: Symmetrical Chest Expansion and Respiratory Effort, - Cardiovascular: RRR, No Edema, - - no significant murmur. Temporary PM intact, no swelling or ecchymosis at site Abdominal: NL Sounds; No Tenderness; No Distention Extremities: No Edema Skin: No Rash or Ulcers Neurological: Alert and Oriented x 3 Laboratory Results: 06/20/19 04:07 06/20/19 04:07 INR (Anticoag Therapy) 1.29 (0.82-1.09) H 06/16/19 14:09 Total Bilirubin 0.30 mg/dL (0.2-1.0) 06/20/19 04:07 AST 14 U/L (13-39) 06/20/19 04:07 ALT 7 U/L (7-52) 06/20/19 04:07 Alkaline Phosphatase 48 U/L (34-104) 06/20/19 04:07 Total Protein 6.5 g/dL (6.4-8.9) 06/20/19 04:07 Albumin 3.3 g/dL (3.2-5.2) 06/20/19 04:07 Globulin 3.2 g/dL (2-4) 06/20/19 04:07 Albumin/Globulin Ratio 1.0 (1-3) 06/20/19 04:07 06/16/19 06/16/19 06/17/19 14:08 21:56 05:46 Troponin I 0.04 H* 0.05 H* 0.04 H* Diagnostic Imaging: Transthoracic Echocardiogram Study Date: 06/16/2019- Conclusions Summary: - Left ventricle: Systolic function is vigorous. The estimated ejection fraction is 60-65%. - Right ventricle: Systolic function is normal. - All valves appear structurally normal with normal function. EKG Data: ekg admission: NSR ~ 100 bpm. 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 Back up rate turned down to 35 bpm. If no pacing today will likely d/c temporary wire later today or tomorrow AM - Continue IV antibiotics and daily ekg
[2019-06-20] MEDS: Enoxaparin(*) 40 MG/0.4 ML SYR SUBCUT SCH (13:59)
--- NOTE | 2019-06-20 14:53 | PN ---
Date of Service: 06/20/19 - [facility] note Critical Care Services: Pt seen and examined at bedside. Pt reports feeling well, c/o fatigue, no dizziness, chest pain Pacemaker rate was decreased to 45, pt noted to have episode of pacemaker firing. Active Medications Generic Name Dose Route Start Last Admin Trade Name Freq PRN Reason Stop Dose Admin Enoxaparin Sodium 40 mg 06/17/19 14:00 06/20/19 13:59 Lovenox(*) SUBCUT 40 mg Q24H [facility] Administration Ceftriaxone Sodium 2 gm/ 100 mls @ 200 mls/hr 06/16/19 21:00 06/19/19 20:38 Sodium Chloride IVPB 200 mls/hr Q24H [facility] Administration Ibuprofen 400 mg 06/16/19 22:15 06/19/19 07:02 Motrin Tab* PO 400 mg Q6H PRN Administration PAIN - MILD Influenza Virus Vaccine 0.5 ml 06/21/19 09:00 Fluarix Quad [id number] Syr IM 06/21/19 09:01 .ONCE ONE Vital Signs: Temp Pulse Resp BP SpO2 FiO2 99 F 64 25 125/83 95 06/20/19 11:25 06/20/19 14:00 06/20/19 14:00 06/20/19 14:00 06/20/19 14:00 Physical Exam: Gen: Pt in NAD HEENT: PERRLA, no JVD Lungs: Scaterred wheeze and crackles at bases Cardiac: S1, S2+, regular Abdomen: Soft, BS+ Extremities: No edema Neuro: Alert, awake, no focal deficits Skin: No rash Fluid Balance (Past 24 Hours): X=2599 O= 900 Net 277 Intake & Output 06/18/19 06/19/19 06/20/19 06/21/19 06:59 06:59 06:59 06:59 Intake Total 1428 1390 1817 1177 Output Total 1999 1900 750 900 Balance -572 -510 1067 277 Intake: IV Fluids 228 70 117 37 NS (0.9%) 228 70 117 37 IVPB 240 100 ABX 155 100 NS (0.9%) 85 Oral 960 1320 1600 1140 Output: Urine 1999 1350 750 900 [place] 550 Other: Date of Last Bowel 0 Movement # Voids 0 Labs: Laboratory Results - last 24 hr 06/16/19 06/20/1919 14:08 04:07 04:07 WBC 3.3 L RBC 4.63 Hgb 13.6 L Hct 41 L MCV 89 MCH 30 MCHC 33 RDW 15 Plt Count 201 MPV 7.6 Neut % (Auto) 9.0 Lymph % (Auto) 69.6 [place] % (Auto) 15.4 Eos % (Auto) 5.0 Baso % (Auto) 1.0 Absolute Neuts (auto) 0.3 L* Absolute Lymphs (auto) 2.2 Absolute Monos (auto) 0.5 Absolute Eos (auto) 0.2 Absolute Basos (auto) 0.0 Absolute Nucleated RBC 0.0 Nucleated RBC % 0.3 Sodium 137 Potassium 4.3 Chloride 106 Carbon Dioxide 26 Anion Gap 5 BUN 8 Creatinine 0.63 L Est GFR ( Amer) 161.2 Est GFR (Non-Af Amer) 133.2 BUN/Creatinine Ratio 12.7 Glucose 99 Calcium 8.9 Magnesium 2.3 Total Bilirubin 0.30 AST 14 ALT 7 Alkaline Phosphatase 48 Total Protein 6.5 Albumin 3.3 Globulin 3.2 Albumin/Globulin Ratio 1.0 B. burgdorferi IgM (IB) Positive A Lyme IgG Bands Present See comment Lyme IgG Ab (Immblot) Positive A Lyme IgM Ab (Immblot) p41,p39,p23 Lyme Disease Interpret See comment Studies: EKG: ist degree AV block Impression: 54 y o m with tick bite with complete heart block s/p pacemaker placement Bradycardia sec to complete heart block Lyme disease, Borrelia IgM positive indicative of active infection. 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 Still dependant on pacemaker, heart block is improving. Cardiology f /u noted. Will continue to monitor in ICU with transvenous pacemaker. Rpt EKG and review of telemonitor in am to assess need for pacemaker Leucopenia: Secondary to early Borrelia infection. Neutropenic precautions ordered. Bl cx sent. c/w ceftriaxone, confirmatory test is pending. No signs of sepsis DVT px: Lovenox sq Critical Care Time: 20 min
[2019-06-20] MEDS: cefTRIAXone(*) 2 GM in NS 0.9% 100 ML* 100 ML IVPB SCH (21:30)
[2019-06-21 06:41] LABS: Hematocrit 43 % (42-52); Hemoglobin 14.8 g/dL (14.0-18.0); Mean Corpuscular HGB Conc 35 g/dL (31-36); Mean Corpuscular Hemoglobin 31 pg (27-31); Mean Corpuscular Volume 88 fL (80-94); Mean Platelet Volume 7.4 fL (7.4-10.4); Platelet Count 225 10^3/uL (150-450); Red Blood Count 4.85 10^6 /uL (4.18-5.48); Red Cell Distribution Width 14 % (10-15); White Blood Count 3.6 10^3/uL (3.5-10.8)
[2019-06-21 06:44] LABS: ABS Eosinophils 0.1 10^3/ul (0-0.6); ABS Lymphocytes 2.2 10^3/ul (1.0-4.8); ABS Monocytes 0.6 10^3/ul (0-0.8); ABS Neutrophils 0.5 10^3/ul (1.5-7.7); Eosinophil % 3.3 %; Lymphocyte % 64.5 %; Nucleated Red Blood Cells % 0.1
[2019-06-21] MEDS: Ibuprofen TAB* 400 MG PO PRN (08:33)
[2019-06-21] MEDS ORDERED: Influenza VAC *QUAD* 2019-20* 0.5 ML SYRINGE IM ONE (09:00)
[2019-06-21] MEDS: Enoxaparin(*) 40 MG/0.4 ML SYR SUBCUT SCH (15:07)
--- NOTE | 2019-06-21 16:52 | PN ---
Date of Service: 06/21/19 Critical Care Services: Continues to have episodes of bradycardia but ECG now only shows a first-degree AV block. Vital Signs: Temp Pulse Resp BP SpO2 FiO2 97.9 F 64 20 128/79 93 Physical Exam: Gen:Alert, oriented, so SOB HEENT:no faial assymetry Lungs: Clear Cardiac: Reg rhythm. No murmurs Abdomen: Not distended Extremities:No cyanosis or edema Fluid Balance (Past 24 Hours): 06/19/19 06/20/19 06/21/19 06/22/19 06:59 06:59 06:59 06:59 Intake Total 1390 1817 2537 240 Output Total 3260 821 6810 700 Balance -510 1067 -463 -460 Intake: IV Fluids 70 117 37 ABX 0 NS (0.9%) 70 117 37 IVPB 100 100 ABX 100 100 Oral 1320 1600 2400 240 Output: Urine 1259 449 0176 700 [place] 550 Other: Estimated Void Medium # Voids 1 Labs: 06/21/19 06:00 WBC 3.6 RBC 4.85 Hgb 14.8 Hct 43 MCV 88 MCH 31 MCHC 35 RDW 14 Plt Count 225 MPV 7.4 Neut % (Auto) 14.4 Lymph % (Auto) 64.5 [place] % (Auto) 16.7 Eos % (Auto) 3.3 Baso % (Auto) 1.1 Absolute Neuts (auto) 0.5 L* Absolute Lymphs (auto) 2.2 Absolute Monos (auto) 0.6 Absolute Eos (auto) 0.1 Absolute Basos (auto) 0.0 Absolute Nucleated RBC 0.0 Nucleated RBC % 0.1 Studies: None today Nutrition: oral diet. Intake good Impression: Apparent Lyme carditis with AV block, which is improving on ceftriaxone R%x. Plan: Continue ceftriaxone (? for 2 weeks total) and continue cardiac monitoring. Critical Care Time: 25 minutes
[2019-06-21] MEDS: cefTRIAXone(*) 2 GM in NS 0.9% 100 ML* 100 ML IVPB SCH (20:45)
[2019-06-22] MEDS: Enoxaparin(*) 40 MG/0.4 ML SYR SUBCUT SCH (14:03)
--- NOTE | 2019-06-22 17:03 | PN ---
Date of Service: 06/22/19 Critical Care Services: Clinical status unchanged. Still has first-degree AV block. No episodes of syncope Vital Signs: Temp Pulse Resp BP SpO2 FiO2 98.4 F 73 21 98/46 95 Physical Exam: Gen:Alert, oriented HEENT:No facial asymmetry Lungs:clear Cardiac: Reg rhythm Abdomen:Not distended Extremities:No cyanosis or edema Fluid Balance (Past 24 Hours): 06/20/19 06/21/19 06/22/19 06/23/19 06:59 06:59 06:59 06:59 Intake Total 1817 2537 1150 24 Output Total 750 3000 1700 1525 Balance 1067 -463 -550 -1501 Intake: IV Fluids 117 37 80 24 ABX 0 NS (0.9%) 117 37 80 24 IVPB 100 100 100 ABX 100 100 100 Oral 1600 2400 970 Output: Urine 750 3000 1500 1525 [place]y 200 Other: Estimated Void Medium # Voids 1 Labs: None today Studies: None today Nutrition: Oral diet Impression: Improved but still with AV block Plan: Continue to monitor.
[2019-06-22] MEDS: cefTRIAXone(*) 2 GM in NS 0.9% 100 ML* 100 ML IVPB SCH (21:40)
[2019-06-23] MEDS ORDERED: Influenza VAC *QUAD* 2019-20* 0.5 ML SYRINGE IM ONE (09:00)
--- NOTE | 2019-06-23 09:26 | PN ---
Subjective Date of Service: 06/23/19 - CC: syncope, complete heart block+ Lyme Interval History: No new c/o from the patient. Still occasionally dizzy. No fevers, myalgias or arthralgias. Medications Active Medications: Enoxaparin Sodium (Lovenox(*)) 40 mg SUBCUT Q24H [facility] Last Admin: 06/22/19 14:03 Dose: 40 mg Ceftriaxone Sodium 2 gm/ (Sodium Chloride) 100 mls @ 200 mls/hr IVPB Q24H [facility] Last Admin: 06/22/19 21:40 Dose: 200 mls/hr Ibuprofen (Motrin Tab*) 400 mg PO Q6H PRN PRN Reason: PAIN - MILD Last Admin: 06/21/19 08:33 Dose: 400 mg Influenza Virus Vaccine (Fluarix Quad [id number] Syr) 0.5 ml IM .ONCE ONE Stop: 06/25/19 09:01 Objective Vital Signs: Temp Pulse Resp BP Pulse Ox 99 F 78 15 129/92 92 06/23/19 08:00 06/23/19 09:01 06/23/19 09:01 06/23/19 09:00 06/23/19 09:01 Vital Signs (72 hours) 06/20/19 06/20/19 06/20/19 10:00 11:00 11:25 Temperature 99 F Pulse Rate 67 64 Respiratory 13 23 Rate Blood Pressure 119/67 117/74 (mmHg) O2 Sat by Pulse 96 92 Oximetry 06/20/19 06/20/19 06/20/19 12:00 13:00 14:00 Temperature Pulse Rate 68 70 64 Respiratory 19 18 25 Rate Blood Pressure 122/78 132/87 125/83 (mmHg) O2 Sat by Pulse 92 90 95 Oximetry 06/20/19 06/20/19 06/20/19 15:00 15:01 16:00 Temperature 98.7 F Pulse Rate 62 61 Respiratory 20 20 20 Rate Blood Pressure 130/79 120/73 (mmHg) O2 Sat by Pulse 96 92 Oximetry 06/20/19 06/20/19 06/20/19 16:01 17:00 18:00 Temperature Pulse Rate 63 56 55 Respiratory 9 16 22 Rate Blood Pressure 129/78 (mmHg) O2 Sat by Pulse 95 93 95 Oximetry 09/22/19 09/22/19 09/22/19 18:01 19:00 20:00 Temperature Pulse Rate 58 71 Respiratory 15 17 29 Rate Blood Pressure 139/89 143/80 156/92 (mmHg) O2 Sat by Pulse 91 95 Oximetry 06/20/19 06/20/19 06/20/19 20:01 21:00 22:00 Temperature Pulse Rate 61 57 57 Respiratory 10 24 20 Rate Blood Pressure 156/92 127/83 130/79 (mmHg) O2 Sat by Pulse 96 95 95 Oximetry 06/20/19 06/20/19 06/20/19 22:01 22:37 23:00 Temperature Pulse Rate 56 56 52 Respiratory 20 11 9 Rate Blood Pressure 130/79 127/78 (mmHg) O2 Sat by Pulse 94 93 93 Oximetry 06/20/19 06/20/19 06/21/19 23:01 23:40 00:00 Temperature 97 F Pulse Rate 53 52 54 Respiratory 15 21 17 Rate Blood Pressure 127/77 (mmHg) O2 Sat by Pulse 94 94 93 Oximetry 06/21/19 06/21/19 06/21/19 01:00 02:00 03:00 Temperature Pulse Rate 53 52 68 Respiratory 20 18 18 Rate Blood Pressure 122/75 124/74 126/91 (mmHg) O2 Sat by Pulse 91 95 94 Oximetry 06/21/19 06/21/19 06/21/19 04:00 05:00 05:02 Temperature 97.1 F Pulse Rate 57 62 60 Respiratory 16 23 18 Rate Blood Pressure 137/85 127/84 (mmHg) O2 Sat by Pulse 93 93 92 Oximetry 06/21/19 06/21/19 06/21/19 06:00 06:01 07:00 Temperature Pulse Rate 71 66 72 Respiratory 23 14 15 Rate Blood Pressure 144/88 130/81 (mmHg) O2 Sat by Pulse 91 92 94 Oximetry 06/21/19 06/21/19 06/21/19 08:00 08:09 09:00 Temperature 98.3 F Pulse Rate 61 63 Respiratory 20 15 Rate Blood Pressure 133/86 (mmHg) O2 Sat by Pulse 93 96 Oximetry 06/21/19 06/21/19 06/21/19 09:01 10:00 11:00 Temperature Pulse Rate 55 67 58 Respiratory 24 21 16 Rate Blood Pressure 133/79 127/84 128/74 (mmHg) O2 Sat by Pulse 94 96 92 Oximetry 06/21/19 06/21/19 06/21/19 12:00 12:17 13:00 Temperature 97.9 F Pulse Rate 54 Respiratory 25 17 Rate Blood Pressure 110/70 (mmHg) O2 Sat by Pulse 95 Oximetry 06/21/19 06/21/19 06/21/19 13:01 14:00 14:01 Temperature Pulse Rate 59 60 59 Respiratory 21 17 21 Rate Blood Pressure 132/84 111/89 (mmHg) O2 Sat by Pulse 93 93 92 Oximetry 06/21/19 06/21/19 06/21/19 15:00 16:00 17:00 Temperature Pulse Rate 58 64 60 Respiratory 23 20 22 Rate Blood Pressure 136/77 128/79 130/87 (mmHg) O2 Sat by Pulse 93 93 95 Oximetry 06/21/19 06/21/19 06/21/19 18:00 19:00 19:40 Temperature 98.8 F Pulse Rate 58 69 Respiratory 22 21 Rate Blood Pressure 120/77 130/82 (mmHg) O2 Sat by Pulse 94 94 Oximetry 06/21/19 06/21/19 06/21/19 19:42 20:00 20:01 Temperature Pulse Rate 64 63 Respiratory 22 18 21 Rate Blood Pressure 122/79 (mmHg) O2 Sat by Pulse 95 94 Oximetry 06/21/19 06/21/19 06/21/19 20:59 21:00 21:01 Temperature Pulse Rate 64 75 Respiratory 23 20 20 Rate Blood Pressure 118/76 (mmHg) O2 Sat by Pulse 94 93 Oximetry 06/21/19 06/21/19 06/21/19 21:53 22:00 22:24 Temperature Pulse Rate 75 66 Respiratory 15 21 17 Rate Blood Pressure 125/77 (mmHg) O2 Sat by Pulse 92 92 Oximetry 06/21/19 06/21/19 06/22/19 23:00 23:38 00:00 Temperature 98.8 F Pulse Rate 65 58 Respiratory 22 19 Rate Blood Pressure 111/74 112/72 (mmHg) O2 Sat by Pulse 91 92 Oximetry 06/22/19 06/22/19 06/22/19 01:00 02:00 03:00 Temperature Pulse Rate 57 57 Respiratory 21 25 21 Rate Blood Pressure 126/80 134/82 (mmHg) O2 Sat by Pulse 92 92 Oximetry 06/22/19 06/22/19 06/22/19 03:01 03:34 04:00 Temperature 99.0 F Pulse Rate 55 60 Respiratory 17 20 Rate Blood Pressure 140/84 118/74 (mmHg) O2 Sat by Pulse 95 91 Oximetry 06/22/19 06/22/19 06/22/19 04:01 05:00 05:01 Temperature Pulse Rate 62 60 57 Respiratory 20 21 21 Rate Blood Pressure 112/68 (mmHg) O2 Sat by Pulse 90 91 93 Oximetry 06/22/19 06/22/19 06/22/19 06:00 07:00 07:43 Temperature 98.7 F Pulse Rate 68 55 Respiratory 14 18 Rate Blood Pressure 112/76 125/89 (mmHg) O2 Sat by Pulse 94 94 Oximetry 06/22/19 06/22/19 06/22/19 07:45 08:00 09:00 Temperature Pulse Rate 58 70 72 Respiratory 11 18 16 Rate Blood Pressure 121/75 129/95 122/81 (mmHg) O2 Sat by Pulse 98 96 93 Oximetry 06/22/19 06/22/19 06/22/19 10:00 10:01 11:00 Temperature Pulse Rate 64 60 Respiratory 15 20 18 Rate Blood Pressure 122/73 115/69 (mmHg) O2 Sat by Pulse 93 94 Oximetry 06/22/19 06/22/19 06/22/19 11:01 11:30 11:45 Temperature Pulse Rate 60 63 57 Respiratory 18 14 13 Rate Blood Pressure 117/84 122/65 (mmHg) O2 Sat by Pulse 95 95 90 Oximetry 06/22/19 06/22/19 06/22/19 12:00 12:15 12:30 Temperature 99.2 F Pulse Rate 70 69 67 Respiratory 13 14 19 Rate Blood Pressure 102/76 107/79 117/77 (mmHg) O2 Sat by Pulse 95 95 94 Oximetry 06/22/19 06/22/19 06/22/19 12:45 13:00 13:01 Temperature Pulse Rate 63 75 70 Respiratory 20 20 10 Rate Blood Pressure 109/76 135/77 (mmHg) O2 Sat by Pulse 96 94 91 Oximetry 06/22/19 06/22/19 06/22/19 13:16 14:00 15:00 Temperature Pulse Rate 72 64 Respiratory 20 22 7 Rate Blood Pressure 121/83 122/85 108/67 (mmHg) O2 Sat by Pulse 93 95 Oximetry 06/22/19 06/22/19 06/22/19 16:00 17:00 17:02 Temperature 98.4 F Pulse Rate 73 64 62 Respiratory 21 16 16 Rate Blood Pressure 98/46 108/70 (mmHg) O2 Sat by Pulse 95 96 95 Oximetry 06/22/19 06/22/19 06/22/19 18:00 18:01 19:00 Temperature Pulse Rate 71 71 68 Respiratory 20 20 17 Rate Blood Pressure 129/83 129/80 (mmHg) O2 Sat by Pulse 96 95 96 Oximetry 06/22/19 06/22/19 06/22/19 19:07 20:00 21:00 Temperature 99.7 F Pulse Rate 68 69 Respiratory 23 17 Rate Blood Pressure 115/67 108/73 (mmHg) O2 Sat by Pulse 94 93 Oximetry 06/22/19 06/22/19 06/22/19 22:00 23:00 23:01 Temperature Pulse Rate 44 66 62 Respiratory 20 20 20 Rate Blood Pressure 92/57 (mmHg) O2 Sat by Pulse 93 93 94 Oximetry 06/22/19 06/23/19 06/23/19 23:52 00:00 00:19 Temperature 98.3 F Pulse Rate 50 64 Respiratory 19 0 Rate Blood Pressure 108/72 (mmHg) O2 Sat by Pulse 94 93 Oximetry 06/23/19 06/23/19 06/23/19 01:00 01:01 02:00 Temperature Pulse Rate 61 61 68 Respiratory 19 20 19 Rate Blood Pressure 108/67 90/51 (mmHg) O2 Sat by Pulse 93 93 93 Oximetry 06/23/19 06/23/19 06/23/19 02:01 02:30 03:00 Temperature Pulse Rate 38 60 61 Respiratory 15 18 7 Rate Blood Pressure 106/64 101/59 (mmHg) O2 Sat by Pulse 97 93 94 Oximetry 06/23/19 06/23/19 06/23/19 03:30 03:45 04:00 Temperature 99.2 F Pulse Rate 56 53 Respiratory 19 15 Rate Blood Pressure 110/64 114/71 (mmHg) O2 Sat by Pulse 93 94 Oximetry 06/23/19 06/23/19 06/23/19 04:30 05:00 05:30 Temperature Pulse Rate 63 61 59 Respiratory 18 19 20 Rate Blood Pressure 106/78 106/70 102/65 (mmHg) O2 Sat by Pulse 93 93 93 Oximetry 06/23/19 06/23/19 06/23/19 06:00 06:30 07:00 Temperature Pulse Rate 56 61 65 Respiratory 10 22 13 Rate Blood Pressure 122/85 119/78 (mmHg) O2 Sat by Pulse 95 94 93 Oximetry 06/23/19 06/23/19 06/23/19 07:01 07:30 08:00 Temperature 99 F Pulse Rate 66 63 70 Respiratory 13 21 21 Rate Blood Pressure 118/79 127/74 106/73 (mmHg) O2 Sat by Pulse 93 94 94 Oximetry 06/23/19 06/23/19 06/23/19 08:01 08:30 08:31 Temperature Pulse Rate 66 61 61 Respiratory 21 22 18 Rate Blood Pressure 124/72 124/72 (mmHg) O2 Sat by Pulse 98 95 94 Oximetry 06/23/19 06/23/19 09:00 09:01 Temperature Pulse Rate 58 78 Respiratory 20 15 Rate Blood Pressure 129/92 (mmHg) O2 Sat by Pulse 93 92 Oximetry Oxygen Devices in Use Now: None Appearance: nad, pleasant, eating breakfast Eyes: No Scleral Icterus, PERRLA Ears/Nose/Mouth/Throat: Clear Oropharnyx Neck: NL Appearance and Movements; NL JVP, Trachea Midline Respiratory: Symmetrical Chest Expansion and Respiratory Effort, - Cardiovascular: RRR, No Edema, - - no murmur. Abdominal: NL Sounds; No Tenderness; No Distention Extremities: No Edema Skin: No Rash or Ulcers - Temporary PM intact left subclavian fossa, no swelling or ecchymosis at site Neurological: Alert and Oriented x 3 Lines/Tubes/Other Access: Clean, Dry and Intact Peripheral IV Laboratory Results: 06/21/19 06:00 06/20/19 04:07 INR (Anticoag Therapy) 1.29 (0.82-1.09) H 06/16/19 14:09 Total Bilirubin 0.30 mg/dL (0.2-1.0) 06/20/19 04:07 AST 14 U/L (13-39) 06/20/19 04:07 ALT 7 U/L (7-52) 06/20/19 04:07 Alkaline Phosphatase 48 U/L (34-104) 06/20/19 04:07 Total Protein 6.5 g/dL (6.4-8.9) 06/20/19 04:07 Albumin 3.3 g/dL (3.2-5.2) 06/20/19 04:07 Globulin 3.2 g/dL (2-4) 06/20/19 04:07 Albumin/Globulin Ratio 1.0 (1-3) 06/20/19 04:07 06/16/19 06/16/19 06/17/19 14:08 21:56 05:46 Troponin I 0.04 H* 0.05 H* 0.04 H* Diagnostic Imaging: Transthoracic Echocardiogram Study Date: 06/16/2019- Conclusions Summary: - Left ventricle: Systolic function is vigorous. The estimated ejection fraction is 60-65%. - Right ventricle: Systolic function is normal. - All valves appear structurally normal with normal function. EKG Data: ekg admission: NSR ~ 100 bpm. High grade AV block with episodes of junctional escape rate < 40 bpm overall ekg 06/19/2109 NSr 60 bpm, complete av dissocation, ABRASIVE GRADER 46 bpm Monitor/tele 06/22/19-06/23/19: NSR, long 1st degree AVB, PAC's, occasional temp. pacer use (programmed for back up pacing at 30 bpm). 10 AM: NSR, CHB for 5 seconds, V. pacing with AV dissociation. 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 - As using still, options of turning off, turn on prn long pause only, observe. If plan to keep temporary wire we should change line and introducer tomorrow AM, low grade fevers noted. I can do in AM. Consider update CBC, at risk for line infection. \ ADDENDUM: AWARE ABX CHANGED FOR NEUTROPENIA. NO EXCHANGE IN TEMP PACER OR PERM. PACER PLANNED AT THIS TIME PER DISCUSSIONS WITH ICU AND ID.
[2019-06-23 10:32] LABS: Hematocrit 43 % (42-52); Hemoglobin 14.5 g/dL (14.0-18.0); Mean Corpuscular HGB Conc 34 g/dL (31-36); Mean Corpuscular Hemoglobin 30 pg (27-31); Mean Corpuscular Volume 89 fL (80-94); Mean Platelet Volume 7.2 fL (7.4-10.4); Platelet Count 213 10^3/uL (150-450); Red Blood Count 4.85 10^6 /uL (4.18-5.48); Red Cell Distribution Width 15 % (10-15); White Blood Count 3.7 10^3/uL (3.5-10.8)
[2019-06-23 11:01] LABS: ABS Neutrophils 0.6 10^3/ul (1.5-7.7)
[2019-06-23 11:24] LABS: ABS Eosinophils 0.1 10^3/ul (0-0.6); ABS Lymphocytes 2.3 10^3/ul (1.0-4.8); ABS Monocytes 0.7 10^3/ul (0-0.8); Eosinophil % 2.8 %; Lymphocyte % 61.7 %; Nucleated Red Blood Cells % 0.1
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
[2019-06-23] MEDS: Enoxaparin(*) 40 MG/0.4 ML SYR SUBCUT SCH (14:09)
--- NOTE | 2019-06-23 17:00 | PN ---
Date of Service: 06/23/19 Critical Care Services: Resting comfortably in bed. No specific complaints Vital Signs: Temp Pulse Resp BP SpO2 FiO2 98.9 F 69 60 100/78 96 Physical Exam: Gen:Alert, oriented, confortable HEENT:No facial asymmetry. No adenopathy Lungs: Clear Cardiac: Reg rehythm Abdomen:Not distended Extremities:No rash Neuro:No focal findings Fluid Balance (Past 24 Hours): 06/21/19 06/22/19 06/23/19 06:59 06:59 06:59 Intake Total 2537 1150 204 Output Total 3000 1700 1875 Balance -710 -657 -8771 Intake: IV Fluids 37 80 104 ABX 0 NS (0.9%) 37 80 104 IVPB 100 100 100 ABX 100 100 100 Oral 2400 970 Output: Urine 3000 1500 1875 [place] 200 Other: Estimated Void Medium # Voids 1 Labs: 06/23/19 10:19 WBC 3.7 RBC 4.85 Hgb 14.5 Hct 43 MCV 89 MCH 30 MCHC 34 RDW 15 Plt Count 213 MPV 7.2 L Neut % (Auto) 16.0 Lymph % (Auto) 61.7 [place] % (Auto) 19.2 Eos % (Auto) 2.8 Baso % (Auto) 0.3 Absolute Neuts (auto) 0.6 L* Absolute Lymphs (auto) 2.3 Absolute Monos (auto) 0.7 Absolute Eos (auto) 0.1 Absolute Basos (auto) 0.0 Absolute Nucleated RBC 0.0 Nucleated RBC % 0.1 Studies: EKG: First-degree block Nutrition: Oral diet Impression: Doing well, but has borderline neutropenia (? drug-related) Plan: 1. Continue ceftriaxone, per recommendation of ID service. 2. Pacer management per cardiology
[2019-06-23] MEDS: DOXYcycline IV* 100 MG in NS 0.9% 250 ML* 250 ML IVPB SCH (21:10)
[2019-06-24 06:54] LABS: Hematocrit 44 % (42-52); Hemoglobin 14.6 g/dL (14.0-18.0); Mean Corpuscular HGB Conc 33 g/dL (31-36); Mean Corpuscular Hemoglobin 29 pg (27-31); Mean Corpuscular Volume 89 fL (80-94); Mean Platelet Volume 7.3 fL (7.4-10.4); Platelet Count 221 10^3/uL (150-450); Red Blood Count 4.95 10^6 /uL (4.18-5.48); Red Cell Distribution Width 15 % (10-15); White Blood Count 3.9 10^3/uL (3.5-10.8)
[2019-06-24 07:01] LABS: ABS Neutrophils 0.6 10^3/ul (1.5-7.7)
[2019-06-24 07:46] LABS: ABS Basophils 0.1 10^3/ul (0-0.2); ABS Eosinophils 0.1 10^3/ul (0-0.6); ABS Lymphocytes 2.4 10^3/ul (1.0-4.8); ABS Monocytes 0.7 10^3/ul (0-0.8); Eosinophil % 3.1 %; Nucleated Red Blood Cells % 0.4
[2019-06-24] MEDS: DOXYcycline IV* 100 MG in NS 0.9% 250 ML* 250 ML IVPB SCH ×2 (08:43→20:30)
[2019-06-24] MEDS: Enoxaparin(*) 40 MG/0.4 ML SYR SUBCUT SCH (14:54)
--- NOTE | 2019-06-24 16:51 | PN ---
Date of Service: 06/24/19 Critical Care Services: Turned off the pacemaker this AM and has done well so far. Has no complaints. Vital Signs: Temp Pulse Resp BP SpO2 FiO2 99.1 F 79 20 113/69 97 Physical Exam: Gen:Alert, oriented, comfortable Lungs: clear Cardiac: Reg rhythm. No murmurs Abdomen: Not distended Extremities: No cyanosis or edema Fluid Balance (Past 24 Hours): 06/22/19 06/23/19 06/24/19 06:59 06:59 06:59 Intake Total 1150 204 479 Output Total 1700 1875 1200 Balance -550 -9613 -721 Intake: IV Fluids 80 104 110 NS (0.9%) 80 104 110 IVPB 100 100 249 ABX 100 100 249 Oral 970 120 Output: Urine 1500 1875 1200 [place] 200 Other: Estimated Void Medium # Voids 1 Labs: Laboratory Results - last 24 hr 06/24/19 06:13 WBC 3.9 RBC 4.95 Hgb 14.6 Hct 44 MCV 89 MCH 29 MCHC 33 RDW 15 Plt Count 221 MPV 7.3 L Neut % (Auto) 15.0 Lymph % (Auto) 62.0 [place] % (Auto) 18.1 Eos % (Auto) 3.1 Baso % (Auto) 1.8 Absolute Neuts (auto) 0.6 L* Absolute Lymphs (auto) 2.4 Absolute Monos (auto) 0.7 Absolute Eos (auto) 0.1 Absolute Basos (auto) 0.1 Absolute Nucleated RBC 0.0 Nucleated RBC % 0.4 Studies: ECG: First degree AV block. Nutrition: Oral diet. Intake good Impression: Doing well without pacer backup today. Jarvis has borderline neutropenia. Plan: Continue to observe. Will have him ambulate tomorrow and if no problem, we should consider discharge. Critical Care Time:
[2019-06-25 04:57] LABS: Hematocrit 43 % (42-52); Hemoglobin 14.6 g/dL (14.0-18.0); Mean Corpuscular HGB Conc 34 g/dL (31-36); Mean Corpuscular Hemoglobin 30 pg (27-31); Mean Corpuscular Volume 89 fL (80-94); Mean Platelet Volume 7.4 fL (7.4-10.4); Platelet Count 218 10^3/uL (150-450); Red Blood Count 4.89 10^6 /uL (4.18-5.48); Red Cell Distribution Width 15 % (10-15)
[2019-06-25 05:14] LABS: ABS Basophils 0.1 10^3/ul (0-0.2); ABS Eosinophils 0.1 10^3/ul (0-0.6); ABS Lymphocytes 2.5 10^3/ul (1.0-4.8); ABS Monocytes 0.6 10^3/ul (0-0.8); ABS Neutrophils 0.7 10^3/ul (1.5-7.7)
[2019-06-25 05:37] LABS: Eosinophil % 2.3 %; Lymphocyte % 63.7 %; Nucleated Red Blood Cells % 0.2
[2019-06-25] MEDS ORDERED: Influenza VAC *QUAD* 2019-20* 0.5 ML SYRINGE IM ONE (09:00)
[2019-06-25] MEDS: DOXYcycline IV* 100 MG in NS 0.9% 250 ML* 250 ML IVPB SCH ×2 (09:46→21:30)
--- NOTE | 2019-06-25 10:19 | PN ---
Progress Note - Progress Note Date of Service: 06/25/19 SOAP: Subjective: CC: Lyme Carditis HPI: Mr. Magaña is a 54 yo male with PMH significant for Hx TB (unclear if active or latent), hx alcoholism, and tobacco abuse. Denies fever, chills, nausea, vomiting, or diarrhea. He is feeling better. Objective: Vital Signs - 8 hr 06/25/19 06/25/19 06/25/19 03:30 04:00 04:01 Temperature 98.0 F Pulse Rate 59 56 54 Respiratory 18 21 14 Rate Blood Pressure 107/71 91/57 (mmHg) O2 Sat by Pulse 95 97 98 Oximetry Physical: General: NAD, sitting up in bed Neurological: Alert and Oriented HEENT: Moist MM, no thrush Cardiovascular: Heart rate regular Respiratory: Lung sounds clear Abdominal: Bowel sounds present; ABD soft, non tender and non distended Skin: No rash Laboratory Results - last 24 hr 06/25/19 04:40 WBC 4.0 RBC 4.89 Hgb 14.6 Hct 43 MCV 89 MCH 30 MCHC 34 RDW 15 Plt Count 218 MPV 7.4 Neut % (Auto) 16.5 Lymph % (Auto) 63.7 [place] % (Auto) 16.1 Eos % (Auto) 2.3 Baso % (Auto) 1.4 Absolute Neuts (auto) 0.7 L* Absolute Lymphs (auto) 2.5 Absolute Monos (auto) 0.6 Absolute Eos (auto) 0.1 Absolute Basos (auto) 0.1 Absolute Nucleated RBC 0.0 Nucleated RBC % 0.2 Microbiology 06/18/19 10:49 Aerobic Blood Culture - Final Blood Venous No Growth Day 5 Anaerobic Blood Culture - Final No Growth Day 5 06/16/19 18:32 Nasal Screen MRSA (PCR) - Final Nasal Mrsa Not Detected Assessment: 1. Lyme Carditis. Was reciving ceftiriaxone, but felt leukopenia and neutropenia was secondary to ceftriaxone. Switched to Doxycycline. Has had temporary pacemaker turned off for about 24 hours. Afebrile. Continues to have mostly 1st degree AV block with intermittent 2nd degree block (Mobitz type 2) per NS staff. 2. Neutropenia. Continues to have a low ANC, but this is improving. Suspect secondary to Ceftriaxone as his labs were normal at the time on admission. Plan: Continue Doxycycline IV, he can be switched to oral Doxycycline at discharge to complete a 21 day course. Day 07/19. He should stay in the hospital and be monitored until his [place] interval is <300.
[2019-06-25] MEDS: Enoxaparin(*) 40 MG/0.4 ML SYR SUBCUT SCH (13:49)
--- NOTE | 2019-06-25 16:53 | PN ---
Date of Service: 06/25/19 Critical Care Services: Up walking today without difficulty, but still has type-2 AV block on cardiogram Vital Signs: Temp Pulse Resp BP SpO2 FiO2 98.6 F 73 25 115/73 95 Physical Exam: Gen:Alert, oriented Lungs: Clear Cardiac: No mumurs or rubs Abdomen: Not distended Extremities:No cyanosis or edema Fluid Balance (Past 24 Hours): 06/23/19 06/24/19 06/25/19 06:59 06:59 06:59 Intake Total 460 474 4223.5 Output Total 1875 1200 1325 Balance -1671 -721 1487.5 Intake: IV Fluids 104 110 167.5 NS (0.9%) 104 110 167.5 IVPB 100 249 545 ABX 100 249 545 Oral 120 2100 Output: Urine 1875 1200 1325 Other: Date of Last Bowel Movement # Bowel Movements Estimated Stool Amount # Voids 0 Labs: 06/25/19 04:40 WBC 4.0 RBC 4.89 Hgb 14.6 Hct 43 MCV 89 MCH 30 MCHC 34 RDW 15 Plt Count 218 MPV 7.4 Neut % (Auto) 16.5 Lymph % (Auto) 63.7 [place] % (Auto) 16.1 Eos % (Auto) 2.3 Baso % (Auto) 1.4 Absolute Neuts (auto) 0.7 L* Absolute Lymphs (auto) 2.5 Absolute Monos (auto) 0.6 Absolute Eos (auto) 0.1 Absolute Basos (auto) 0.1 Absolute Nucleated RBC 0.0 Nucleated RBC % 0.2 Studies: None Nutrition: Oral diet - intake good Impression: Continues to improve. Borderline neutropenia persists. Plan: 1. Keep temporary pacer in for today. Consider removing tomorrow if he tolerates physical activity. 2. Monitor leukocyte count
[2019-06-26 05:34] LABS: Hematocrit 44 % (42-52); Hemoglobin 14.5 g/dL (14.0-18.0); Mean Corpuscular HGB Conc 33 g/dL (31-36); Mean Corpuscular Hemoglobin 30 pg (27-31); Mean Corpuscular Volume 89 fL (80-94); Mean Platelet Volume 7.1 fL (7.4-10.4); Platelet Count 203 10^3/uL (150-450); Red Blood Count 4.88 10^6 /uL (4.18-5.48); Red Cell Distribution Width 15 % (10-15); White Blood Count 3.8 10^3/uL (3.5-10.8)
[2019-06-26 05:39] LABS: ABS Neutrophils 0.8 10^3/ul (1.5-7.7)
[2019-06-26 06:18] LABS: ABS Basophils 0.1 10^3/ul (0-0.2); ABS Eosinophils 0.1 10^3/ul (0-0.6); ABS Lymphocytes 2.1 10^3/ul (1.0-4.8); ABS Monocytes 0.7 10^3/ul (0-0.8); Eosinophil % 3.1 %; Lymphocyte % 56.9 %; Nucleated Red Blood Cells % 0.1
[2019-06-26] MEDS: DOXYcycline IV* 100 MG in NS 0.9% 250 ML* 250 ML IVPB SCH ×2 (08:36→21:27)
[2019-06-26] MEDS: Enoxaparin(*) 40 MG/0.4 ML SYR SUBCUT SCH (15:27)
--- NOTE | 2019-06-26 16:05 | PN ---
Date of Service: 06/26/19 Critical Care Services: Has done well since pacer turned off yesterday, and has been ambulating without difficulty. Rhythm strip shows first degree AV Block. Vital Signs: Temp Pulse Resp BP SpO2 FiO2 98 F 79 20 125/69 96 Physical Exam: Gen:Alert, oriented, appropriate HEENT:No adenopathy Lungs: Clear Cardiac: No murmurs or rubs Abdomen: Not distended Extremities: No cyanosis or eema Fluid Balance (Past 24 Hours): 06/24/19 06/25/19 06/26/19 06:59 06:59 06:59 Intake Total 479 2812.5 560 Output Total 1200 1325 2675 Balance -721 1487.5 -2115 Intake: IV Fluids 110 167.5 22 NS (0.9%) 110 167.5 22 IVPB 249 545 538 ABX 249 545 538 Oral 120 2100 Output: Urine 1200 1325 2675 Other: Date of Last Bowel 06/25/19 Movement # Bowel Movements 2 Estimated Stool Amount Medium # Voids 0 Labs: 06/26/19 05:24 WBC 3.8 RBC 4.88 Hgb 14.5 Hct 44 MCV 89 MCH 30 MCHC 33 RDW 15 Plt Count 203 MPV 7.1 L Neut % (Auto) 20.1 Lymph % (Auto) 56.9 [place] % (Auto) 18.3 Eos % (Auto) 3.1 Baso % (Auto) 1.6 Absolute Neuts (auto) 0.8 L* Absolute Lymphs (auto) 2.1 Absolute Monos (auto) 0.7 Absolute Eos (auto) 0.1 Absolute Basos (auto) 0.1 Absolute Nucleated RBC 0.0 Nucleated RBC % 0.1 Studies: None today Nutrition: Reg diet Impression: Doing well. No longer has a high-grade AV block. Plan: Remove temporary pacer and transfer to telemetry unit. Continue IV antibiotics for now. Cardiology and ID services are following.
[2019-06-27 08:14] LABS: ABS Eosinophils 0.1 10^3/ul (0-0.6); ABS Lymphocytes 2.2 10^3/ul (1.0-4.8); ABS Monocytes 0.5 10^3/ul (0-0.8); ABS Neutrophils 1.2 10^3/ul (1.5-7.7); Eosinophil % 2.1 %; Hematocrit 44 % (42-52); Hemoglobin 15.2 g/dL (14.0-18.0); Lymphocyte % 53.7 %; Mean Corpuscular HGB Conc 34 g/dL (31-36); Mean Corpuscular Hemoglobin 30 pg (27-31); Mean Corpuscular Volume 88 fL (80-94); Mean Platelet Volume 6.9 fL (7.4-10.4); Platelet Count 235 10^3/uL (150-450); Red Blood Count 5.03 10^6 /uL (4.18-5.48); Red Cell Distribution Width 15 % (10-15); White Blood Count 4.1 10^3/uL (3.5-10.8)
[2019-06-27 08:32] LABS: BUN/Creatinine Ratio 19.6 (8-20); Calcium 9.7 mg/dL (8.6-10.3); EGFR African American 184.7 (>60); EGFR Non-African American 152.6 (>60); Magnesium 1.9 mg/dL (1.9-2.7); Potassium 4.1 mmol/L (3.5-5.0)
--- NOTE | 2019-06-27 09:13 | PN ---
Subjective Date of Service: 06/27/19 Interval History: No acute events overnight. Telestrip at 0650 with one dropped beat - 2nd degree type 2. otherwise repeat EKG with 1st degree heart block with IA 424 from 444. Asymptomatic. Denies chest pain, SOB, fevers, chills, abdominal pain, edema, orthopnea. Dx of cirrhosis last year. on review of last progress note, had been on spironolactone, lasix, rifaximin. He stopped all his meds 2-3 months ago as was feeling well and his abdominal and leg swelling had resolved. Objective Active Medications: Enoxaparin Sodium (Lovenox(*)) 40 mg SUBCUT Q24H [facility] Last Admin: 06/26/19 15:27 Dose: 40 mg Doxycycline Hyclate 100 mg/ (Sodium Chloride) 250 mls @ 250 mls/hr IVPB Q12H [facility] Last Admin: 06/26/19 21:27 Dose: 250 mls/hr Magnesium Sulfate/Dextrose (Magnesium Sulfate 1 Gm Iv*) 1 gm in 100 mls @ 200 mls/hr IV ONCE ONE Stop: 06/27/19 09:44 Ibuprofen (Motrin Tab*) 400 mg PO Q6H PRN PRN Reason: PAIN - MILD Last Admin: 06/21/19 08:33 Dose: 400 mg Vital Signs - 8 hr 06/27/19 06/27/19 04:06 07:15 Temperature 98.0 F 97.8 F Pulse Rate 67 69 Respiratory 16 18 Rate Blood Pressure 106/71 103/65 (mmHg) O2 Sat by Pulse 97 97 Oximetry Oxygen Devices in Use Now: None Appearance: NAD, sitting on side of bed Eyes: No Scleral Icterus Ears/Nose/Mouth/Throat: - - poor dentition Respiratory: Symmetrical Chest Expansion and Respiratory Effort, Clear to Auscultation Cardiovascular: NL Sounds; No Murmurs; No JVD, RRR, No Edema Abdominal: NL Sounds; No Tenderness; No Distention Extremities: No Edema Skin: No Rash or Ulcers Neurological: Alert and Oriented x 3 Nutrition: Taking PO's Result Diagrams: 06/27/19 08:05 06/27/19 08:05 Additional Lab and Data: Laboratory Results - last 24 hr 06/27/19 06/27/19 08:05 08:05 WBC 4.1 RBC 5.03 Hgb 15.2 Hct 44 MCV 88 MCH 30 MCHC 34 RDW 15 Plt Count 235 MPV 6.9 L Neut % (Auto) 30.4 Lymph % (Auto) 53.7 [place] % (Auto) 13.5 Eos % (Auto) 2.1 Baso % (Auto) 0.3 Absolute Neuts (auto) 1.2 L Absolute Lymphs (auto) 2.2 Absolute Monos (auto) 0.5 Absolute Eos (auto) 0.1 Absolute Basos (auto) 0.0 Absolute Nucleated RBC 0.0 Nucleated RBC % 0.0 Sodium 138 Potassium 4.1 Chloride 106 Carbon Dioxide 26 Anion Gap 6 BUN 11 Creatinine 0.56 L Est GFR ( Amer) 184.7 Est GFR (Non-Af Amer) 152.6 BUN/Creatinine Ratio 19.6 Glucose 93 Calcium 9.7 Magnesium 1.9 Microbiology and Other Data: Microbiology 06/18/19 10:49 Aerobic Blood Culture - Final Blood Venous No Growth Day 5 Anaerobic Blood Culture - Final No Growth Day 5 06/16/19 18:32 Nasal Screen MRSA (PCR) - Final Nasal Mrsa Not Detected Assess/Plan/Problems-Billing Assessment: 54 yo male [facility] alcoholic cirrhosis (sober since January 2019, off meds for 3 months ) 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 s/p prolonged ICU stay with transvenous pacer. Back in 1st AVB with markedly prolonged IA. s/p Ceftriaxone - > IV doxy given concern for neutropenia. - Patient Problems (1) Lyme carditis Current Visit: Yes Status: Acute Code(s): A69.29 - OTHER CONDITIONS ASSOCIATED WITH LYME DISEASE; I51.89 - OTHER ILL-DEFINED HEART DISEASES SNOMED Code(s): 63884791 Comment: in 1st degree AVB with one episode of skipped beat (2nd degree type 2) this AM. continue IV doxycyline. Day 09/18 Appreciate ID and cardiology recs. BMP, Mag rechecked. Replete Mg>2 continue telemetry. Goal IA <300 before discharge per ID. Currently 424 from 444 on 06/23 (2) Alcoholic cirrhosis Current Visit: Yes Status: Acute Code(s): K70.30 - ALCOHOLIC CIRRHOSIS OF LIVER WITHOUT ASCITES SNOMED Code(s): 463879994 Comment: has been off meds for few months. Improved symptoms (formerly ascites, edema) since sober in January. Euvolemic. INR elevated to 1.29 on admission. Request PCP records about liver US he says he got. States he has never seen GI though there are dates of 05/06/18 for EGD and February 2016 for colonoscopy in [facility]. (3) Neutropenia Current Visit: Yes Status: Acute Code(s): D70.9 - NEUTROPENIA, UNSPECIFIED SNOMED Code(s): 604452373 Comment: attributed to the IV Ceftriaxone. Improved today, ANC 1200 from 800. (4) Current smoker Current Visit: Yes Status: Acute Code(s): F17.200 - NICOTINE DEPENDENCE, UNSPECIFIED, UNCOMPLICATED SNOMED Code(s): 41056929 Comment: has not been on nicotine patch during this 12 day admission so far. If requests can give. Status and Disposition: medicine inpatient. waiting for IA <300 per ID.
[2019-06-27] MEDS ORDERED: Magnesium Sulfate 1 GM IV* 1 GM/100 ML BAG IV ONE (09:15)
[2019-06-27] MEDS: DOXYcycline IV* 100 MG in NS 0.9% 250 ML* 250 ML IVPB SCH ×2 (10:06→20:03)
[2019-06-27] MEDS: Enoxaparin(*) 40 MG/0.4 ML SYR SUBCUT SCH (13:47)
[2019-06-28 06:32] LABS: Hematocrit 42 % (42-52); Hemoglobin 14.2 g/dL (14.0-18.0); Mean Corpuscular HGB Conc 33 g/dL (31-36); Mean Corpuscular Hemoglobin 30 pg (27-31); Mean Corpuscular Volume 89 fL (80-94); Mean Platelet Volume 7.3 fL (7.4-10.4); Platelet Count 201 10^3/uL (150-450); Red Blood Count 4.77 10^6 /uL (4.18-5.48); Red Cell Distribution Width 14 % (10-15); White Blood Count 3.8 10^3/uL (3.5-10.8)
[2019-06-28 06:51] LABS: ABS Neutrophils 0.8 10^3/ul (1.5-7.7); BUN/Creatinine Ratio 20.4 (8-20); Calcium 9.3 mg/dL (8.6-10.3); EGFR African American 192.6 (>60); EGFR Non-African American 159.2 (>60); Potassium 4.2 mmol/L (3.5-5.0)
[2019-06-28 08:14] LABS: ABS Eosinophils 0.1 10^3/ul (0-0.6); ABS Lymphocytes 2.2 10^3/ul (1.0-4.8); ABS Monocytes 0.6 10^3/ul (0-0.8); Eosinophil % 2.7 %; Lymphocyte % 57.8 %; Nucleated Red Blood Cells % 0.1
[2019-06-28] MEDS: DOXYcycline IV* 100 MG in NS 0.9% 250 ML* 250 ML IVPB SCH ×2 (08:19→20:21)
--- NOTE | 2019-06-28 10:04 | PN ---
Progress Note - Progress Note Date of Service: 06/28/19 SOAP: Subjective: CC: Lyme Carditis HPI: Mr. Magaña is a 54 yo male with PMH significant for Hx TB s/p treatment, hx alcoholism, and tobacco abuse. Denies dizziness, fever, chills, nausea, vomiting , or diarrhea. States he is feeling well, he is requesting to have a shower. Objective: Vital Signs - 8 hr 06/28/19 03:15 Temperature 98.2 F Pulse Rate 68 Respiratory 16 Rate Blood Pressure 106/69 (mmHg) O2 Sat by Pulse 98 Oximetry Physical Exam: General: NAD, sitting up in bed Neurological: Alert and Oriented HEENT: Moist MM, no thrush Cardiovascular: Heart rate regular Respiratory: Lung sounds clear Abdominal: Bowel sounds present; ABD soft, non tender and non distended Skin: No rash Laboratory Results - last 24 hr 06/28/19 06/28/19 05:39 05:39 WBC 3.8 RBC 4.77 Hgb 14.2 Hct 42 MCV 89 MCH 30 MCHC 33 RDW 14 Plt Count 201 MPV 7.3 L Neut % (Auto) 21.6 Lymph % (Auto) 57.8 [place] % (Auto) 16.7 Eos % (Auto) 2.7 Baso % (Auto) 1.2 Absolute Neuts (auto) 0.8 L* Absolute Lymphs (auto) 2.2 Absolute Monos (auto) 0.6 Absolute Eos (auto) 0.1 Absolute Basos (auto) 0.0 Absolute Nucleated RBC 0.0 Nucleated RBC % 0.1 Sodium 139 Potassium 4.2 Chloride 106 Carbon Dioxide 28 Anion Gap 5 BUN 11 Creatinine 0.54 L Est GFR ( Amer) 192.6 Est GFR (Non-Af Amer) 159.2 BUN/Creatinine Ratio 20.4 H Glucose 90 Calcium 9.3 Magnesium 2.0 Microbiology 06/18/19 10:49 Aerobic Blood Culture - Final Blood Venous No Growth Day 5 Anaerobic Blood Culture - Final No Growth Day 5 06/16/19 18:32 Nasal Screen MRSA (PCR) - Final Nasal Mrsa Not Detected Assessment: 1. Lyme Carditis. Was receiving ceftriaxone, but felt leukopenia and neutropenia was secondary to ceftriaxone. Switched to Doxycycline. Had temporary pacemaker removed. Afebrile and no leukocytosis. Continues to have mostly 1st degree AV block with intermittent 2nd degree block, mobitz type 2. 2. Neutropenia. Leukopenia has resolved. Continues to have a low ANC, but this is improving. Suspect secondary to Ceftriaxone as his labs were normal at the time on admission. Plan: Continue Doxycycline IV, he can be switched to oral Doxycycline at discharge to complete a 21 day course. Day . Recommend monitoring in the hospital until his LA interval is <300.
[2019-06-28] MEDS: Enoxaparin(*) 40 MG/0.4 ML SYR SUBCUT SCH (13:56)
--- NOTE | 2019-06-28 17:21 | PN ---
Subjective Date of Service: 06/28/19 Interval History: Multiple episodes of 2nd degree type 2 mobitz 2 heart block between 7 30 and 9 am today. doing well after Family History: Unchanged from Admission Social History: Unchanged from Admission Past Medical History: Unchanged from Admission Objective Active Medications: Enoxaparin Sodium (Lovenox(*)) 40 mg SUBCUT Q24H [facility] Last Admin: 06/28/19 13:56 Dose: 40 mg Doxycycline Hyclate 100 mg/ (Sodium Chloride) 250 mls @ 250 mls/hr IVPB Q12H [facility] Last Admin: 06/28/19 08:19 Dose: 250 mls/hr Ibuprofen (Motrin Tab*) 400 mg PO Q6H PRN PRN Reason: PAIN - MILD Last Admin: 06/21/19 08:33 Dose: 400 mg Vital Signs - 8 hr 06/28/19 06/28/19 11:11 15:46 Temperature 98.5 F 97.8 F Pulse Rate 67 65 Respiratory 16 19 Rate Blood Pressure 100/59 103/63 (mmHg) O2 Sat by Pulse 98 98 Oximetry Oxygen Devices in Use Now: None Eyes: No Scleral Icterus Ears/Nose/Mouth/Throat: NL Teeth, Lips, Gums Neck: NL Appearance and Movements; NL JVP Respiratory: Symmetrical Chest Expansion and Respiratory Effort, Clear to Auscultation Cardiovascular: NL Sounds; No Murmurs; No JVD Abdominal: NL Sounds; No Tenderness; No Distention, - - no rebound,no guarding, some ascites Extremities: No Edema Neurological: Alert and Oriented x 3 Result Diagrams: 06/28/19 05:39 06/28/19 05:39 Additional Lab and Data: Laboratory Results - last 24 hr 06/27/19 06/27/19 08:05 08:05 WBC 4.1 RBC 5.03 Hgb 15.2 Hct 44 MCV 88 MCH 30 MCHC 34 RDW 15 Plt Count 235 MPV 6.9 L Neut % (Auto) 30.4 Lymph % (Auto) 53.7 [place] % (Auto) 13.5 Eos % (Auto) 2.1 Baso % (Auto) 0.3 Absolute Neuts (auto) 1.2 L Absolute Lymphs (auto) 2.2 Absolute Monos (auto) 0.5 Absolute Eos (auto) 0.1 Absolute Basos (auto) 0.0 Absolute Nucleated RBC 0.0 Nucleated RBC % 0.0 Sodium 138 Potassium 4.1 Chloride 106 Carbon Dioxide 26 Anion Gap 6 BUN 11 Creatinine 0.56 L Est GFR ( Amer) 184.7 Est GFR (Non-Af Amer) 152.6 BUN/Creatinine Ratio 19.6 Glucose 93 Calcium 9.7 Magnesium 1.9 Microbiology and Other Data: Microbiology 06/18/19 10:49 Aerobic Blood Culture - Final Blood Venous No Growth Day 5 Anaerobic Blood Culture - Final No Growth Day 5 06/16/19 18:32 Nasal Screen MRSA (PCR) - Final Nasal Mrsa Not Detected Assess/Plan/Problems-Billing Assessment: 54 yo male PMH alcoholic cirrhosis (sober since January 2019, off meds for 3 months ) 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 s/p prolonged ICU stay with transvenous pacer. Back in 1st AVB with markedly prolonged AR. s/p Ceftriaxone - > IV doxy given concern for neutropenia. - Patient Problems (1) Lyme carditis Current Visit: Yes Status: Acute Code(s): A69.29 - OTHER CONDITIONS ASSOCIATED WITH LYME DISEASE; I51.89 - OTHER ILL-DEFINED HEART DISEASES SNOMED Code(s): 54296116 Comment: Multiple episodes of Mobitz 2 this am continue IV doxycyline. Day Appreciate ID and cardiology recs. BMP, Mag rechecked. Replete Mg>2 continue telemetry. Goal AR <300 before discharge per ID. Discussed high degree AV block with Dr Tony who will be seeing the patient today Continue antibiotics Had a temp pacer before that was removed Will eval closely on tele and reevaluate pacer needs vs conservative managment based on clinical progress and further cardiology recs (2) Alcoholic cirrhosis Current Visit: Yes Status: Acute Code(s): K70.30 - ALCOHOLIC CIRRHOSIS OF LIVER WITHOUT ASCITES SNOMED Code(s): 088597292 Comment: has been off meds for few months. Improved symptoms (formerly ascites, edema) since sober in January. Euvolemic. INR elevated to 1.29 on admission. Request PCP records about liver US he says he got. States he has never seen GI though there are dates of 05/06/18 for EGD and February 2016 for colonoscopy in [facility]. (3) Current smoker Current Visit: Yes Status: Acute Code(s): F17.200 - NICOTINE DEPENDENCE, UNSPECIFIED, UNCOMPLICATED SNOMED Code(s): 34751774 Comment: has not been on nicotine patch during this 12 day admission so far. If requests can give. (4) Neutropenia Current Visit: Yes Status: Acute Code(s): D70.9 - NEUTROPENIA, UNSPECIFIED SNOMED Code(s): 460796534 Comment: attributed to the IV Ceftriaxone. Will monitor Status and Disposition: medicine inpatient. waiting for AR <300 per ID.
[2019-06-29 06:19] LABS: Hematocrit 42 % (42-52); Hemoglobin 13.9 g/dL (14.0-18.0); Mean Corpuscular HGB Conc 33 g/dL (31-36); Mean Corpuscular Hemoglobin 30 pg (27-31); Mean Corpuscular Volume 89 fL (80-94); Platelet Count 197 10^3/uL (150-450); Red Blood Count 4.71 10^6 /uL (4.18-5.48); Red Cell Distribution Width 14 % (10-15); White Blood Count 3.7 10^3/uL (3.5-10.8)
[2019-06-29 06:38] LABS: BUN/Creatinine Ratio 21.8 (8-20); Calcium 9.6 mg/dL (8.6-10.3); EGFR African American 188.5 (>60); EGFR Non-African American 155.8 (>60); Potassium 4.2 mmol/L (3.5-5.0)
[2019-06-29 07:06] LABS: ABS Eosinophils 0.1 10^3/ul (0-0.6); ABS Lymphocytes 2.2 10^3/ul (1.0-4.8); ABS Monocytes 0.6 10^3/ul (0-0.8); ABS Neutrophils 0.8 10^3/ul (1.5-7.7); Eosinophil % 2.6 %; Lymphocyte % 60.2 %; Nucleated Red Blood Cells % 0.1
[2019-06-29] MEDS: DOXYcycline IV* 100 MG in NS 0.9% 250 ML* 250 ML IVPB SCH ×2 (09:54→21:22)
[2019-06-29] MEDS: Enoxaparin(*) 40 MG/0.4 ML SYR SUBCUT SCH (13:18)
--- NOTE | 2019-06-29 14:46 | PN ---
Subjective Date of Service: 06/29/19 Interval History: Seen with at bedside Feels well, no CP, on syncope, LH Anxious to leave but has no problem waiting until recommended mostly 1st degree, 1 episode mobitz type 1 Family History: Unchanged from Admission Social History: Unchanged from Admission Past Medical History: Unchanged from Admission Objective Active Medications: Enoxaparin Sodium (Lovenox(*)) 40 mg SUBCUT Q24H [facility] Last Admin: 06/29/19 13:18 Dose: 40 mg Doxycycline Hyclate 100 mg/ (Sodium Chloride) 250 mls @ 250 mls/hr IVPB Q12H [facility] Last Admin: 06/29/19 09:54 Dose: 250 mls/hr Ibuprofen (Motrin Tab*) 400 mg PO Q6H PRN PRN Reason: PAIN - MILD Last Admin: 06/21/19 08:33 Dose: 400 mg Vital Signs - 8 hr 06/29/19 06/29/19 06/29/19 07:15 08:00 11:18 Temperature 97.2 F 97.8 F Pulse Rate 59 75 Respiratory 20 16 20 Rate Blood Pressure 115/69 115/69 (mmHg) O2 Sat by Pulse 100 99 Oximetry Oxygen Devices in Use Now: None Appearance: NAD Eyes: No Scleral Icterus, PERRLA Ears/Nose/Mouth/Throat: NL Teeth, Lips, Gums, Clear Oropharnyx Neck: NL Appearance and Movements; NL JVP, Trachea Midline Respiratory: Symmetrical Chest Expansion and Respiratory Effort, Clear to Auscultation Cardiovascular: NL Sounds; No Murmurs; No JVD, RRR Neurological: Alert and Oriented x 3 Result Diagrams: 06/29/19 06:03 06/29/19 06:03 Additional Lab and Data: Laboratory Results - last 24 hr 06/27/19 06/27/19 08:05 08:05 WBC 4.1 RBC 5.03 Hgb 15.2 Hct 44 MCV 88 MCH 30 MCHC 34 RDW 15 Plt Count 235 MPV 6.9 L Neut % (Auto) 30.4 Lymph % (Auto) 53.7 [place] % (Auto) 13.5 Eos % (Auto) 2.1 Baso % (Auto) 0.3 Absolute Neuts (auto) 1.2 L Absolute Lymphs (auto) 2.2 Absolute Monos (auto) 0.5 Absolute Eos (auto) 0.1 Absolute Basos (auto) 0.0 Absolute Nucleated RBC 0.0 Nucleated RBC % 0.0 Sodium 138 Potassium 4.1 Chloride 106 Carbon Dioxide 26 Anion Gap 6 BUN 11 Creatinine 0.56 L Est GFR ( Amer) 184.7 Est GFR (Non-Af Amer) 152.6 BUN/Creatinine Ratio 19.6 Glucose 93 Calcium 9.7 Magnesium 1.9 Microbiology and Other Data: Microbiology 06/18/19 10:49 Aerobic Blood Culture - Final Blood Venous No Growth Day 5 Anaerobic Blood Culture - Final No Growth Day 5 06/16/19 18:32 Nasal Screen MRSA (PCR) - Final Nasal Mrsa Not Detected Assess/Plan/Problems-Billing Assessment: 54 yo male PMH alcoholic cirrhosis (sober since January 2019, off meds for 3 months ) 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 Day 14 Appreciate ID and cardiology recs. Maintain K>4 and Mg >2 continue telemetry. Goal NV <300 before discharge per ID. Pt indicated cardiology may perform stress prior to discharge. Not evident in note from today. Will d/w cardiology team EKG daily (2) Alcoholic cirrhosis Comment: On no meds x months. Previously with ascites, edema now in remission INR elevated to 1.29 on admission. Request PCP records about liver US he says he got. States he has never seen GI though there are dates of 05/06/18 for EGD and February 2016 for colonoscopy in [facility]. (3) Current smoker Comment: has not been on nicotine patch during stay. (4) Neutropenia Comment: attributed to the IV Ceftriaxone; now on doxycycline Monitor daily Status and Disposition: medicine inpatient. waiting for NV <300 per ID.
--- NOTE | 2019-06-29 15:36 | PN ---
Progress Note - Progress Note Date of Service: 06/29/19 SOAP: Subjective: CC: Lyme carditis HPI: 54 year old man with syncope, AV block, Lyme IgM positive. He feels well , no syncope or presyncope. Telemetry reviewed, predominantly 1st degree block .28 msec, episodes of 2nd degree block. Objective: Vital Signs Temp 36.6 C 06/29/19 11:18 Pulse 75 06/29/19 11:18 Resp 20 06/29/19 11:18 BP 115/69 06/29/19 11:18 Pulse Ox 99 06/29/19 11:18 Intake & Output 06/28/19 06/29/19 06/29/19 18:59 06:59 18:59 Intake Total 2640 415 2161 Output Total 0 0 Balance 2640 415 2161 Intake: IV Fluids 30 ABX 30 IVPB 265 281 ABX 265 281 Oral 2640 120 1880 Output: Urine 0 0 Other: Estimated Void Medium # Voids 4 Gen:awake, no distress HEENT: no thrush Heart:RRR no murmur Lungs:CTA BL Abd:+BS NTND soft Skin: no rash Laboratory Results - last 24 hr 06/29/19 06/29/19 06:03 06:03 WBC 3.7 RBC 4.71 Hgb 13.9 L Hct 42 MCV 89 MCH 30 MCHC 33 RDW 14 Plt Count 197 MPV 7.0 L Neut % (Auto) 20.4 Lymph % (Auto) 60.2 [place] % (Auto) 15.5 Eos % (Auto) 2.6 Baso % (Auto) 1.3 Absolute Neuts (auto) 0.8 L* Absolute Lymphs (auto) 2.2 Absolute Monos (auto) 0.6 Absolute Eos (auto) 0.1 Absolute Basos (auto) 0.0 Absolute Nucleated RBC 0.0 Nucleated RBC % 0.1 Sodium 138 Potassium 4.2 Chloride 107 Carbon Dioxide 26 Anion Gap 5 BUN 12 Creatinine 0.55 L Est GFR ( Amer) 188.5 Est GFR (Non-Af Amer) 155.8 BUN/Creatinine Ratio 21.8 H Glucose 92 Calcium 9.6 Assessment: 1. Lyme carditis, slowly improving conduction abnormalities 2. neutropenia that developed while here and while on ceftriaxone which I think is likely cause Plan: 1. doxycycline can change to PO, day 13 of antibiotics 2. Recheck CBC next week
[2019-06-30 07:30] LABS: Hematocrit 42 % (42-52); Hemoglobin 13.9 g/dL (14.0-18.0); Mean Corpuscular HGB Conc 33 g/dL (31-36); Mean Corpuscular Hemoglobin 30 pg (27-31); Mean Corpuscular Volume 89 fL (80-94); Mean Platelet Volume 7.4 fL (7.4-10.4); Platelet Count 187 10^3/uL (150-450); Red Cell Distribution Width 15 % (10-15); White Blood Count 4.2 10^3/uL (3.5-10.8)
[2019-06-30 07:54] LABS: BUN/Creatinine Ratio 18.9 (8-20); Calcium 9.4 mg/dL (8.6-10.3); EGFR African American 196.8 (>60); EGFR Non-African American 162.6 (>60); Magnesium 1.8 mg/dL (1.9-2.7); Potassium 4.5 mmol/L (3.5-5.0)
[2019-06-30 08:31] LABS: ABS Eosinophils 0.1 10^3/ul (0-0.6); ABS Lymphocytes 2.5 10^3/ul (1.0-4.8); ABS Monocytes 0.7 10^3/ul (0-0.8); ABS Neutrophils 0.8 10^3/ul (1.5-7.7); Eosinophil % 2.8 %; Lymphocyte % 59.2 %
[2019-06-30] MEDS: DOXYcycline CAP(*) 100 MG PO SCH ×2 (08:54→20:57)
--- NOTE | 2019-06-30 10:01 | PN ---
Subjective Date of Service: 06/30/19 - CC: Lyme carditis, heart block and syncope Interval History: No new c/o from the patient. No longer dizzy. Feeling well. Medications Active Medications: Doxycycline Hyclate (Vibramycin Cap(*)) 100 mg PO BID [facility] Last Admin: 06/30/19 08:54 Dose: 100 mg Enoxaparin Sodium (Lovenox(*)) 40 mg SUBCUT Q24H [facility] Last Admin: 06/29/19 13:18 Dose: 40 mg Ibuprofen (Motrin Tab*) 400 mg PO Q6H PRN PRN Reason: PAIN - MILD Last Admin: 06/21/19 08:33 Dose: 400 mg Objective Vital Signs: Temp Pulse Resp BP Pulse Ox 98.3 F 63 20 110/67 98 06/30/19 08:05 06/30/19 08:05 06/30/19 08:53 06/30/19 08:05 06/30/19 08:05 Oxygen Devices in Use Now: None Appearance: nad, pleasant, walking around the floor. Eyes: No Scleral Icterus, PERRLA Ears/Nose/Mouth/Throat: Clear Oropharnyx Neck: NL Appearance and Movements; NL JVP, Trachea Midline Respiratory: Symmetrical Chest Expansion and Respiratory Effort, - Cardiovascular: RRR, No Edema, - - no murmur. Extremities: No Edema Skin: No Rash or Ulcers - Temporary PM intact left subclavian fossa, no swelling or ecchymosis at site Neurological: Alert and Oriented x 3 Lines/Tubes/Other Access: Clean, Dry and Intact Peripheral IV Laboratory Results: 06/30/19 05:58 06/30/19 05:58 INR (Anticoag Therapy) 1.29 (0.82-1.09) H 06/16/19 14:09 Total Bilirubin 0.30 mg/dL (0.2-1.0) 06/20/19 04:07 AST 14 U/L (13-39) 06/20/19 04:07 ALT 7 U/L (7-52) 06/20/19 04:07 Alkaline Phosphatase 48 U/L (34-104) 06/20/19 04:07 Total Protein 6.5 g/dL (6.4-8.9) 06/20/19 04:07 Albumin 3.3 g/dL (3.2-5.2) 06/20/19 04:07 Globulin 3.2 g/dL (2-4) 06/20/19 04:07 Albumin/Globulin Ratio 1.0 (1-3) 06/20/19 04:07 06/16/19 06/16/19 06/17/19 14:08 21:56 05:46 Troponin I 0.04 H* 0.05 H* 0.04 H* Diagnostic Imaging: Transthoracic Echocardiogram Study Date: 06/16/2019- Conclusions Summary: - Left ventricle: Systolic function is vigorous. The estimated ejection fraction is 60-65%. - Right ventricle: Systolic function is normal. - All valves appear structurally normal with normal function. EKG Data: ekg admission: NSR ~ 100 bpm. High grade AV block with episodes of junctional escape rate < 40 bpm overall Tele 06/29 - 06/30 2019: NSR, 1st degree AVB. With sleep occ. 2:1 block, probable Wenkebach. Occasional sinus arrhythmia (vs. SA block). Assessment/Plan Symptomatic high grade AV block secondary to Lyme carditis improving with antibiotics. Temporary pacer out. No symptomatic javier arrhythmias. Cardiac plan: F/u with Dr Long 3-4 weeks in office. Pt was told to call me or go to ED if any further dizziness/falling on discharge. Our office: [phone]. Cardiology will follow in patient PRN from now on.
--- NOTE | 2019-06-30 11:00 | PN ---
Progress Note - Progress Note Date of Service: 06/30/19 SOAP: Subjective: CC: Lyme Carditis HPI: Mr. Magaña is a 54 yo male with PMH significant for Hx TB s/p treatment, cirrhosis, hx alcoholism, and tobacco abuse. Denies fever, chills, dizziness, nausea, vomiting, or diarrhea. States he is feeling well today. Objective: Vital Signs - 8 hr 06/30/19 10:18 Temperature 98.2 F Pulse Rate 73 Respiratory 22 Rate Blood Pressure 112/67 (mmHg) O2 Sat by Pulse 98 Oximetry Physical Exam: General: NAD, sitting up on the side of the bed Neurological: Alert and Oriented HEENT: Moist MM, no thrush Cardiovascular: Heart rate regular Respiratory: Lung sounds clear Abdominal: Bowel sounds present; ABD soft, non tender, non distended Skin: No rash Laboratory Results - last 24 hr 06/30/19 06/30/19 05:58 05:58 WBC 4.2 RBC 4.70 Hgb 13.9 L Hct 42 MCV 89 MCH 30 MCHC 33 RDW 15 Plt Count 187 MPV 7.4 Neut % (Auto) 19.9 Lymph % (Auto) 59.2 [place] % (Auto) 17.1 Eos % (Auto) 2.8 Baso % (Auto) 1.0 Absolute Neuts (auto) 0.8 L* Absolute Lymphs (auto) 2.5 Absolute Monos (auto) 0.7 Absolute Eos (auto) 0.1 Absolute Basos (auto) 0.0 Absolute Nucleated RBC 0.0 Nucleated RBC % 0.0 Sodium 139 Potassium 4.5 Chloride 108 Carbon Dioxide 26 Anion Gap 5 BUN 10 Creatinine 0.53 L Est GFR ( Amer) 196.8 Est GFR (Non-Af Amer) 162.6 BUN/Creatinine Ratio 18.9 Glucose 86 Calcium 9.4 Magnesium 1.8 L Microbiology 06/18/19 10:49 Aerobic Blood Culture - Final Blood Venous No Growth Day 5 Anaerobic Blood Culture - Final No Growth Day 5 06/16/19 18:32 Nasal Screen MRSA (PCR) - Final Nasal Mrsa Not Detected Assessment: 1. Lyme Carditis. Was receiving ceftriaxone, but felt leukopenia and neutropenia was secondary to ceftriaxone. Switched to Doxycycline. Had temporary pacemaker removed last week. Afebrile and no leukocytosis. Continues to have mostly 1st degree AV block with intermittent 2:1 block. 2. Neutropenia. Leukopenia has resolved. Continues to have a low ANC, but this is improving. Suspect secondary to Ceftriaxone as his labs were normal at the time on admission. Plan: Continue Doxycycline to complete a 21 day course. Day 14. He could be discharged when ok with primary medical team with outpatient followup with Cardiology.
[2019-06-30] MEDS: Enoxaparin(*) 40 MG/0.4 ML SYR SUBCUT SCH (15:20)
--- NOTE | 2019-06-30 18:18 | PN ---
Subjective Date of Service: 06/30/19 Interval History: No complaints VA prolonged with 1st degree intermittent type 2 Family History: Unchanged from Admission Social History: Unchanged from Admission Past Medical History: Unchanged from Admission Objective Active Medications: Doxycycline Hyclate (Vibramycin Cap(*)) 100 mg PO BID [facility] Last Admin: 06/30/19 08:54 Dose: 100 mg Enoxaparin Sodium (Lovenox(*)) 40 mg SUBCUT Q24H [facility] Last Admin: 06/30/19 15:20 Dose: Not Given Ibuprofen (Motrin Tab*) 400 mg PO Q6H PRN PRN Reason: PAIN - MILD Last Admin: 06/21/19 08:33 Dose: 400 mg Vital Signs - 8 hr 06/30/19 06/30/19 06/30/19 10:18 11:20 15:00 Temperature 98.2 F 98.1 F 97.3 F Pulse Rate 73 65 62 Respiratory 22 20 16 Rate Blood Pressure 112/67 117/68 103/64 (mmHg) O2 Sat by Pulse 98 99 100 Oximetry Oxygen Devices in Use Now: None Appearance: NAD Eyes: No Scleral Icterus, PERRLA Ears/Nose/Mouth/Throat: NL Teeth, Lips, Gums, Clear Oropharnyx Neck: NL Appearance and Movements; NL JVP, Trachea Midline Respiratory: Symmetrical Chest Expansion and Respiratory Effort, Clear to Auscultation Cardiovascular: NL Sounds; No Murmurs; No JVD, RRR Abdominal: NL Sounds; No Tenderness; No Distention, No Hepatosplenomegaly Lymphatic: No Cervical Adenopathy Extremities: No Edema Skin: No Rash or Ulcers Neurological: Alert and Oriented x 3 Result Diagrams: 06/30/19 05:58 06/30/19 05:58 Additional Lab and Data: Laboratory Results - last 24 hr 06/27/19 06/27/19 08:05 08:05 WBC 4.1 RBC 5.03 Hgb 15.2 Hct 44 MCV 88 MCH 30 MCHC 34 RDW 15 Plt Count 235 MPV 6.9 L Neut % (Auto) 30.4 Lymph % (Auto) 53.7 [place] % (Auto) 13.5 Eos % (Auto) 2.1 Baso % (Auto) 0.3 Absolute Neuts (auto) 1.2 L Absolute Lymphs (auto) 2.2 Absolute Monos (auto) 0.5 Absolute Eos (auto) 0.1 Absolute Basos (auto) 0.0 Absolute Nucleated RBC 0.0 Nucleated RBC % 0.0 Sodium 138 Potassium 4.1 Chloride 106 Carbon Dioxide 26 Anion Gap 6 BUN 11 Creatinine 0.56 L Est GFR ( Amer) 184.7 Est GFR (Non-Af Amer) 152.6 BUN/Creatinine Ratio 19.6 Glucose 93 Calcium 9.7 Magnesium 1.9 Microbiology and Other Data: Microbiology 06/18/19 10:49 Aerobic Blood Culture - Final Blood Venous No Growth Day 5 Anaerobic Blood Culture - Final No Growth Day 5 06/16/19 18:32 Nasal Screen MRSA (PCR) - Final Nasal Mrsa Not Detected Assess/Plan/Problems-Billing Assessment: 54 yo male PMH alcoholic cirrhosis (sober since January 2019, off meds for 3 months ) 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 Day 15 Appreciate ID and cardiology recs. Maintain K>4 and Mg >2 continue telemetry. Goal VA <300 before discharge per ID. EKG daily (2) Alcoholic cirrhosis Comment: On no meds x months. Previously with ascites, edema now in remission INR elevated to 1.29 on admission. Request PCP records about liver US he says he got. States he has never seen GI though there are dates of 05/06/18 for EGD and February 2016 for colonoscopy in [facility]. (3) Current smoker Comment: has not been on nicotine patch during stay. (4) Neutropenia Comment: attributed to the IV Ceftriaxone; now on doxycycline Monitor daily Status and Disposition: medicine inpatient. waiting for VA <300 per ID.
[2019-07-01 06:01] LABS: Hematocrit 41 % (42-52); Hemoglobin 13.9 g/dL (14.0-18.0); Mean Corpuscular HGB Conc 34 g/dL (31-36); Mean Corpuscular Hemoglobin 30 pg (27-31); Mean Corpuscular Volume 88 fL (80-94); Mean Platelet Volume 7.1 fL (7.4-10.4); Platelet Count 178 10^3/uL (150-450); Red Blood Count 4.69 10^6 /uL (4.18-5.48); Red Cell Distribution Width 15 % (10-15); White Blood Count 4.1 10^3/uL (3.5-10.8)
[2019-07-01 06:36] LABS: ABS Basophils 0.1 10^3/ul (0-0.2); ABS Eosinophils 0.1 10^3/ul (0-0.6); ABS Lymphocytes 2.4 10^3/ul (1.0-4.8); ABS Monocytes 0.6 10^3/ul (0-0.8); ABS Neutrophils 0.9 10^3/ul (1.5-7.7); Eosinophil % 2.7 %; Lymphocyte % 57.6 %; Nucleated Red Blood Cells % 0.1
[2019-07-01] MEDS: DOXYcycline CAP(*) 100 MG PO SCH (08:13)
[2019-07-01 08:54] VITALS: BP 102/63
--- NOTE | 2019-07-15 13:04 | DS ---
CC: Dr. Clint Alvarado * DISCHARGE SUMMARY: DATE OF ADMISSION: 06/16/19 DATE OF DISCHARGE: 07/01/19 PRIMARY CARE PROVIDER: Dr. Clint Alvarado. DISPOSITION ON DISCHARGE: Home. CONDITION ON DISCHARGE: Good. Please note, discharge was completed on the day of discharge; however, that document was lost; this is a repeat record. This document is being dictated in a best effort to supplement the medical records on an accurate history of the patient's hospital stay. PRIMARY DIAGNOSIS: Lyme carditis. SECONDARY DIAGNOSES: Include: 1. Neutropenia. 2. Alcoholic cirrhosis. 3. Tobacco abuse. MEDICATIONS AT THE TIME OF DISCHARGE: Include: 1. Naprosyn 220 mg every 6 hours as needed for pain. 2. Doxycycline to continue last 5 days of therapy, 06/30/19 was day 15 . PROCEDURES PERFORMED DURING HOSPITAL STAY: Temporary pacer wire removed prior to discharge. PERTINENT IMAGING: Transthoracic echocardiogram, impression: LVEF is estimated at 60% to 65%. Right ventricular function is normal. All valves appear structurally normal with normal function except for trace MR. EKG on the day of discharge, MI is noted at 355, decreased from 378 on 06/29/19. PERTINENT LABORATORY DATA: Absolute neutrophil count is 900, increased from day prior of 800, the hussain was 300 on 06/20/19. HISTORY OF PRESENT ILLNESS AND HOSPITAL COURSE: This is a 54-year-old man, past medical history as outlined in the history of present illness on the day of admission, presented to the hospital for what was presumed to be mechanical fall without loss of consciousness, found to have high-grade AV alissa blockade third degree on presentation to the hospital, was admitted to the ICU under the service of Dr. Boyce with cardiology consultation, ultimately required temporary pacer wire placement. Diagnosis of Lyme carditis was made. Laboratory data consistent with total Lyme antibody positive as well as Western blot for P41, P39 and P23. The patient was treated with ceftriaxone 2 g, now it is doxycycline prior to discharge. He ultimately returned to normal sinus rhythm without any high-grade block, although did remain in first-degree block with MI , got just slightly greater than 350 at the time of discharge. Original recommendation was to keep the patient hospitalized until his MI fell below 300 , although cardiology consultation was in agreement with the patient's discharge on the day of discharge. I did have a prolonged conversation with the patient regarding risks and benefits of leaving the hospital prior to his MI less than 300. He indicated that this will not be discharge against medical advice; however, there would be some risk in leaving the hospital prior to meeting this metric, which could include all of the following, but not limited to worsening of his AV alissa blockade, loss of consciousness, traumatic fall and /or . The patient understood that there was increased risk; however, he felt back to his baseline and he was ambulating, felt he would not undertake any risky behavior that would include things like driving until cleared by his physician and felt comfortable returning home with the understanding that he would return to the hospital with any worrisome symptoms that would include recurrent or worsening symptoms, shortness of breath, lightheadedness, loss of consciousness, dizziness, chest pain, nausea, vomiting, or inability to obtain or tolerate his medications. There were no complications during the course of his hospital stay. At followup, please: 1. Ensure EKG normalizes. 2. Ensure followup with Cardiology. There was some discussion about stress testing the patient, although the decision was made to hold until followup. TIME SPENT: Greater than 60 minutes was spent on the discharge of this patient , greater than half was spent [id number] with the patient. [id number]/[facility] #: [id number] CRISTEL
== END 2019-07-01 14:25 | disposition home or self-care (01) | DRG 724 ==
LOC: ED 13:52 → ICU 15:45 → MEDTELE 06-26 15:56
PROVIDERS: ADMIT Internal Medicine; ATTEND Internal Medicine
PROC: 5A1223Z Performance of Cardiac Pacing, Continuous (ICD-10-PCS; principal; 2019-06-17)
DX: A69.29 Other conditions associated with Lyme disease (principal); I44.2 Atrioventricular block, complete; W07.XXXA Fall from chair, initial encounter; F17.210 Nicotine dependence, cigarettes, uncomplicated; F41.9 Anxiety disorder, unspecified; R40.2362 Coma scale, best motor response, obeys commands, at arrival to emergency department; R40.2142 Coma scale, eyes open, spontaneous, at arrival to emergency department; S00.83XA Contusion of other part of head, initial encounter; S00.511A Abrasion of lip, initial encounter; S40.212A Abrasion of left shoulder, initial encounter; R40.2252 Coma scale, best verbal response, oriented, at arrival to emergency department; D72.819 Decreased white blood cell count, unspecified; K70.30 Alcoholic cirrhosis of liver without ascites; Y92.009 Unspecified place in unspecified non-institutional (private) residence as the place of occurrence of the external cause; V49.9XXA Car occupant (driver) (passenger) injured in unspecified traffic accident, initial encounter; Z82.49 Family history of ischemic heart disease and other diseases of the circulatory system; Z86.11 Personal history of tuberculosis
CPT/HCPCS: 33210; 36415; 70450; 70486; 71045; 72125; 80048; 80053; 80307; 80320; 83735; 84484; 85025; 85060; 85610; 86617; 86618; 87040; 87641; 93005; 93306; 99285; A9270-GY; C8929; G0480; J0696; J1644; J1650; J2250; J3010; J3475